=== PATIENT | male | born 1940 | race Caucasian/White ===

== ENCOUNTER 2017-05-09 07:22 | Day surgery (SDC) | payer MEDICARE, BC ==
[2017-05-09] MEDS ORDERED: Lactated Ringers 1,000 ML IV SCH (08:00)
[2017-05-09] MEDS ORDERED: Propofol 200 MG/20 ML SDV ONE (09:03)
[2017-05-09] MEDS ORDERED: fentaNYL 100 MCG/2 ML SDV ONE (09:03)
[2017-05-09 11:09] VITALS: BP 121/59
--- NOTE | 2017-05-09 14:44 | OR ---
DATE OF PROCEDURE: 05/09/2017 PREOPERATIVE DIAGNOSES: Upper abdominal pain and history of colon polyps. POSTOPERATIVE DIAGNOSES: Gastroesophageal reflux disease, history of colon polyps, and unremarkable colonoscopy. PROCEDURE: Esophagogastroduodenoscopy with biopsy of gastroesophageal junction , colonoscopy to the cecum. SURGEON: Lc Mtz MD. ANESTHESIA: IV anesthesia with monitored anesthesia care. INDICATION: This 77-year-old white male is referred for upper and lower endoscopy. The indication for an upper endoscopy is upper abdominal pain. He has been taking a proton pump inhibitor. The indication for a colonoscopy is a history of colon polyps. I counseled him for upper and lower endoscopy with possible biopsy and/or polypectomy including risks and alternatives, and he gave his informed consent to proceed. DESCRIPTION OF PROCEDURE: The patient was placed in the left lateral decubitus position. IV anesthesia was administered by the Anesthesia Service. Time-out was held. The flexible video Olympus upper endoscope was passed through his mouth, down his esophagus, and into his stomach. The scope was easily passed through the pylorus into the duodenum reaching its third portion. The scope was then slowly withdrawn, examining the mucosa throughout. The duodenal mucosa appeared unremarkable. The scope was brought back up through the pylorus into the antrum. The antrum appeared unremarkable. The scope was retroflexed. The proximal stomach appeared unremarkable. The scope was straightened and brought up to the GE junction. This was abnormal in that the Z-line was not straight and that there were islands of gastric mucosa proximal to the Z-line. We obtained multiple, totalling of at least six, biopsies of the gastroesophageal junction. The scope was then brought up through the remainder of the esophagus, which otherwise appeared unremarkable, and it was removed. Next a rectal exam was performed, which was unremarkable. The flexible video Olympus colonoscope was introduced through his anus, up his rectum, and out his colon all way to the cecum. Once the cecum was reached, the scope was slowly withdrawn, examining the mucosa throughout. No mucosal abnormalities were noted. The scope was retroflexed in the rectum with the distal rectum appearing unremarkable. The scope was straightened and removed. He tolerated the procedure well. Lc Mtz MD /[id number] [facility]
== END 2017-05-09 11:30 | disposition home or self-care (01) ==
LOC: JP.SDS 07:22
PROVIDERS: ATTEND Surgery
DX: Z12.11 Encounter for screening for malignant neoplasm of colon (principal); K21.0 Gastro-esophageal reflux disease with esophagitis; I25.10 Atherosclerotic heart disease of native coronary artery without angina pectoris; Z95.5 Presence of coronary angioplasty implant and graft; I10 Essential (primary) hypertension; Z86.010 Personal history of colon polyps; Z88.8 Allergy status to other drugs, medicaments and biological substances
CPT/HCPCS: 43239; 88305; 93005; G0121; J2704; J3010; J7120; 93010

== ENCOUNTER 2017-06-15 10:05 | Emergency (ER) | payer MEDICARE, BC ==
[2017-06-15] MEDS ORDERED: Aspirin 81 MG Tab.Chew PO ONE (10:19)
[2017-06-15] MEDS ORDERED: Nitroglycerin 0.4 MG Tab.SL SL PRN (10:20)
--- NOTE | 2017-06-15 11:09 | CR ---
Chest 1V Frontal HISTORY: Chest pain COMPARISON: 04/10/2015. FINDINGS: Prior median sternotomy. Stable mild cardiomegaly. No acute congestive change. No focal inf iltrates or effusions. Previously seen possible infiltrate at the left lung base is no longer apparen t. Impression: Stable cardiac enlargement no acute infiltrate or congestive change.
--- NOTE | 2017-06-15 11:22 | EDM.PDOC ---
ED HPI GENERAL MEDICAL PROBLEM - General Chief Complaint: Chest Pain Stated Complaint: CHEST PAIN Time Seen by Provider: 06/15/17 10:15 Source of Information: Reports: Patient History Limitations: Reports: No Limitations - History of Present Illness INITIAL COMMENTS - FREE TEXT/NARRATIVE: pt is having chest pain when he walks or exercises . The pain goes away when he rests. He is in atrial fib with some sig pauses. He is rate controlled. 1 week ago he was started on coumadin and his INR is high at greater than 4. Onset: Gradual, Other (last 2-3 days. ) Duration: Hour(s):, Getting Worse Location: Reports: Chest Associated Symptoms: Reports: Other (pt has known atrial fib. ) chest Pain Score (Numeric/FACES): 0 - Related Data Allergies Allergy/AdvReac Type Severity Reaction Status Date / Time procainamide Allergy Other Verified 06/15/17 10:12 ranolazine [From Ranexa] Allergy Other Verified 06/15/17 10:12 rosuvastatin [From Crestor] AdvReac Joint Pain Verified 06/15/17 10:12 simvastatin AdvReac Muscle Verified 06/15/17 10:12 Aches Home Meds: Home Meds Atenolol [Tenormin] 25 mg PO QPM 04/10/15 [History] Docusate Sodium [Colace] 50 mg PO QID 04/10/15 [History] Isosorbide Mononitrate [Imdur] 120 mg PO QAM 04/10/15 [History] Losartan [Cozaar] 25 mg PO QAM 04/10/15 [History] Nitroglycerin [Nitrostat] 0.4 mg SL ASDIRECTED PRN 04/10/15 [History] atorvaSTATin [Lipitor] 80 mg PO DAILY 04/10/15 [History] Aspirin [Adult Low Dose Aspirin EC] 81 mg PO DAILY 05/08/17 [History] Citalopram Hydrobromide [Celexa] 20 mg PO DAILY 05/08/17 [History] Multivitamin with Minerals [Multiple Vitamin] 1 tab PO DAILY 05/08/17 [History] QUEtiapine [SEROquel] 50 mg PO BEDTIME 05/08/17 [History] Triamcinolone Acetonide [Kenalog 0.1% Crm] 1 applic TOP BID 05/08/17 [History] amLODIPine [Norvasc] 10 mg PO DAILY 05/08/17 [History] Warfarin [Coumadin] 5 mg PO DAILY 06/15/17 [History] Past Medical History HEENT History: Reports: Impaired Vision Cardiovascular History: Reports: Afib, Bypass, High Cholesterol, Hypertension, Stents Respiratory History: Reports: Asthma Gastrointestinal History: Reports: Colon Polyp, GERD, Other (See Below) Other Gastrointestinal History: pre ulcers Genitourinary History: Reports: Prostate Disorder Musculoskeletal History: Reports: Arthritis Hematologic History: Reports: Blood Transfusion(s), Other (See Below) Other Hematologic History: for open heart surgery Oncologic (Cancer) History: Reports: Other (See Below) Other Oncologic History: possible skin cancer on nose Dermatologic History: Reports: Psoriasis - Infectious Disease History Infectious Disease History: Reports: Influenza, Measles, Mumps - Past Surgical History HEENT Surgical History: Reports: None Cardiovascular Surgical History: Reports: Carotid Endarterectomy, Coronary Artery Bypass, Coronary Artery Stent Other Cardiovascular Surgeries/Procedures: carotid surgery left side Respiratory Surgical History: Reports: None GI Surgical History: Reports: Colonoscopy, Hernia, Inguinal Other GI Surgeries/Procedures: left ing. hernia Male Surgical History: Reports: TURP-Transurethral Resection of Prostate Other Male Surgeries/Procedures: Musculoskeletal Surgical History: Reports: Other (See Below) Other Musculoskeletal Surgeries/Procedures:: dislocated left shoulder, fx left wrist as child Oncologic Surgical History: Reports: None Social & Family History - Tobacco Use Smoking Status *Q: Former Smoker Years of Tobacco use: 20 Packs/Tins Daily: 0.5 Used Tobacco, but Quit: Yes Month Tobacco Last Used: Second Hand Smoke Exposure: No - Caffeine Use Caffeine Use: Reports: Coffee - Alcohol Use Days Per Week of Alcohol Use: 1 Number of Drinks Per Day: 1 Total Drinks Per Week: 1 - Recreational Drug Use Recreational Drug Use: No ED ROS GENERAL - Review of Systems Review Of Systems: See Below Constitutional: Reports: No Symptoms HEENT: Reports: No Symptoms Respiratory: Reports: No Symptoms Cardiovascular: Reports: Chest Pain, Other ( atrial fib. ) Endocrine: Reports: No Symptoms GI/Abdominal: Reports: No Symptoms : Reports: No Symptoms Musculoskeletal: Reports: No Symptoms Skin: Reports: No Symptoms ED EXAM, GENERAL - Physical Exam Exam: See Below Free Text/Narrative:: Pt arrived with a history of chest pain with activity. When he was at rest he states the pain goes away. He has known atrial fib and there has been consideration of cardioversion. Exam Limited By: No Limitations General Appearance: Alert, No Apparent Distress, Anxious, Other (pupils are equal and ractive. ) Ears: Normal TMs Nose: Normal Inspection Throat/Mouth: Normal Inspection Head: Atraumatic Neck: Normal Inspection Respiratory/Chest: No Respiratory Distress Cardiovascular: Irregularly Irregular, Other ( atrial fib) GI/Abdominal: Soft, Non-Tender (Male) Exam: Deferred Rectal (Males) Exam: Deferred Extremities: Normal Inspection Neurological: Alert, Oriented, Normal Cognition Psychiatric: Normal Affect Course - Vital Signs Last Recorded V/S: Last Vital Signs Temp 35.5 C 06/15/17 10:14 Pulse 58 L 06/15/17 12:05 Resp 12 06/15/17 12:05 BP 114/70 06/15/17 12:05 Pulse Ox 94 L 06/15/17 12:05 - Orders/Labs/Meds Labs: Laboratory Tests 06/15/17 06/15/17 06/15/17 Range/Units 10:31 10:31 10:31 WBC 5.9 (4.5-11.0) K/uL RBC 4.08 L (4.30-5.90) M/uL Hgb 12.9 (12.0-15.0) g/dL Hct 38.9 L (40.0-54.0) % MCV 95 (80-98) fL MCH 32 H (27-31) pg MCHC 33 (32-36) % Plt Count 139 L (150-400) K/uL Neut % (Auto) 54 (36-66) % Lymph % (Auto) 24 (24-44) % [place] % (Auto) 13 H (2-6) % Eos % (Auto) 7 H (2-4) % Baso % (Auto) 1 (0-1) % PT 47.0 H (9.5-12.0) sec INR 4.14 H* (0.80-1.20) APTT 38.0 H (27.0-36.0) sec Sodium (140-148) mmol/L Potassium (3.6-5.2) mmol/L Chloride (100-108) mmol/L Carbon Dioxide (21-32) mmol/L Anion Gap (5.0-14.0) mmol/L BUN (7-18) mg/dL Creatinine (0.8-1.3) mg/dL Est Cr Clr Drug Dosing mL/min Estimated GFR (MDRD) (>60) Glucose (74-106) mg/dL Calcium (8.5-10.1) mg/dL Total Bilirubin (0.2-1.0) mg/dL AST (15-37) U/L ALT (12-78) U/L Alkaline Phosphatase (46-116) U/L Creatine Kinase (39-308) U/L Troponin I < 0.017 (0.000-0.056) ng/mL Total Protein (6.4-8.2) g/dL Albumin (3.4-5.0) g/dL Globulin (2.3-3.5) g/dL Albumin/Globulin Ratio (1.2-2.2) Urine Color Urine Appearance Urine pH (4.5-8.0) Ur Specific [place] (1.008-1.030) Urine Protein (NEGATIVE) mg/dL Urine Glucose (UA) (NEGATIVE) mg/dL Urine Ketones (NEGATIVE) mg/dL Urine Occult Blood (NEGATIVE) Urine Nitrite (NEGAITVE) Urine Bilirubin (NEGATIVE) Urine Urobilinogen (NORMAL) mg/dL Ur Leukocyte Esterase (NEGATIVE) Urine RBC (0-5) Urine WBC (0-5) Ur Epithelial Cells Amorphous Sediment Urine Bacteria Urine Mucus 06/15/17 06/15/17 Range/Units 10:31 11:28 WBC (4.5-11.0) K/uL RBC (4.30-5.90) M/uL Hgb (12.0-15.0) g/dL Hct (40.0-54.0) % MCV (80-98) fL MCH (27-31) pg MCHC (32-36) % Plt Count (150-400) K/uL Neut % (Auto) (36-66) % Lymph % (Auto) (24-44) % [place] % (Auto) (2-6) % Eos % (Auto) (2-4) % Baso % (Auto) (0-1) % PT (9.5-12.0) sec INR (0.80-1.20) APTT (27.0-36.0) sec Sodium 142 (140-148) mmol/L Potassium 4.0 (3.6-5.2) mmol/L Chloride 105 (100-108) mmol/L Carbon Dioxide 30 (21-32) mmol/L Anion Gap 6.9 (5.0-14.0) mmol/L BUN 20 H (7-18) mg/dL Creatinine 1.1 (0.8-1.3) mg/dL Est Cr Clr Drug Dosing 59.91 mL/min Estimated GFR (MDRD) > 60 (>60) Glucose 96 (74-106) mg/dL Calcium 8.5 (8.5-10.1) mg/dL Total Bilirubin 0.8 D (0.2-1.0) mg/dL AST 31 (15-37) U/L ALT 38 (12-78) U/L Alkaline Phosphatase 68 (46-116) U/L Creatine Kinase 165 (39-308) U/L Troponin I (0.000-0.056) ng/mL Total Protein 5.9 L (6.4-8.2) g/dL Albumin 3.2 L (3.4-5.0) g/dL Globulin 2.7 (2.3-3.5) g/dL Albumin/Globulin Ratio 1.2 (1.2-2.2) Urine Color Yellow Urine Appearance Clear Urine pH 7.0 (4.5-8.0) Ur Specific [place] 1.010 (1.008-1.030) Urine Protein Negative (NEGATIVE) mg/dL Urine Glucose (UA) Normal (NEGATIVE) mg/dL Urine Ketones Negative (NEGATIVE) mg/dL Urine Occult Blood Negative (NEGATIVE) Urine Nitrite Negative (NEGAITVE) Urine Bilirubin Negative (NEGATIVE) Urine Urobilinogen Normal (NORMAL) mg/dL Ur Leukocyte Esterase Negative (NEGATIVE) Urine RBC 0-5 (0-5) Urine WBC 0-5 (0-5) Ur Epithelial Cells Rare Amorphous Sediment Not seen Urine Bacteria Not seen Urine Mucus Not seen Meds: Medications Discontinued Medications Generic Name Dose Route Start Last Admin Trade Name Freq PRN Reason Stop Dose Admin Aspirin 243 mg 06/15/17 10:19 06/15/17 10:25 Aspirin PO 06/15/17 10:20 243 mg ONETIME ONE Administration Sodium Chloride 1,000 mls @ 150 mls/hr 06/15/17 11:30 Normal Saline IV ASDIRECTED MEG Nitroglycerin 0.4 mg 06/15/17 10:20 06/15/17 11:29 Nitrostat SL 0.4 mg Q5M PRN Administration Chest Pain - Re-Assessments/Exams Free Text/Narrative Re-Assessment/Exam: 06/15/17 11:24 ekg shows atrial fib with sig pauses, His ekg did not show sig s-t changes. He had a normal trop. His inr is high. He was started on coumadin 1 week ago. Free Text/Narrative Re-Assessment/Exam: 06/18/17 07:26 pt had normal cardiac enzymes. He remained in atrial fib. With the chest pain the sales operations director thought he should come to [place]. Departure - Departure Time of Disposition: 12:15 Disposition: DC/Tfer to Acute Hospital 02 Reason for Transfer *Q: Primary PCI Indicated Condition: Fair Clinical Impression: Exercise-induced angina, Atrial fibrillation Referrals: PCP,None [Ordering Only Provider] - Forms: ED Department Discharge Care Plan Goals: transfer to [facility].
[2017-06-15] MEDS ORDERED: Sodium Chloride 0.9% 1,000 ML IV SCH (11:30)
[2017-06-15 11:38] VITALS: BP 114/70
== END 2017-06-15 12:38 ==
LOC: JP.ED 10:05
DX: I20.8 Other forms of angina pectoris (principal); I48.91 Unspecified atrial fibrillation; I10 Essential (primary) hypertension; E78.00 Pure hypercholesterolemia, unspecified; J45.909 Unspecified asthma, uncomplicated; Z79.82 Long term (current) use of aspirin; Z87.891 Personal history of nicotine dependence; Z79.01 Long term (current) use of anticoagulants; Z79.899 Other long term (current) drug therapy; Z88.1 Allergy status to other antibiotic agents; Z88.8 Allergy status to other drugs, medicaments and biological substances
CPT/HCPCS: 36415; 71045; 80053; 81001; 82550; 84484; 85025; 85610; 85730; 93005; 99285; A9270; 93010; 99284

== ENCOUNTER 2017-07-22 03:40 | Emergency (ER) | payer MEDICARE, BC ==
[2017-07-22 04:02] VITALS: BP 164/78
[2017-07-22] MEDS ORDERED: Ondansetron 4 MG Tab.DIS PO ONE (04:55)
[2017-07-22] MEDS ORDERED: Sodium Chloride 0.9% 10 ML Syringe FLUSH PRN (05:29)
[2017-07-22] MEDS ORDERED: Iopamidol 612 MG/ML 150 ML Bottle IV PRN (05:48)
--- NOTE | 2017-07-22 05:51 | EDM.PDOC ---
ED HPI GENERAL MEDICAL PROBLEM - General Chief Complaint: Gastrointestinal Problem Stated Complaint: STOMACH ACHE Time Seen by Provider: 07/22/17 04:54 Source of Information: Reports: Patient History Limitations: Reports: No Limitations - History of Present Illness INITIAL COMMENTS - FREE TEXT/NARRATIVE: This patient said that last night he ate some spaghetti and not long afterwards started having some pain. He says it's sometimes like cramps sometimes like a bloating feeling and he was very nauseated. He said he never vomited just tried to vomit because of the severe nausea. Recently he was put on the metoprolol because of atrial fibrillation and said that he's Been sick since that time. Middle Abdomen Pain Score (Numeric/FACES): 7 - Related Data Allergies Allergy/AdvReac Type Severity Reaction Status Date / Time procainamide Allergy Other Verified 06/15/17 10:12 ranolazine [From Ranexa] Allergy Other Verified 06/15/17 10:12 rosuvastatin [From Crestor] AdvReac Joint Pain Verified 06/15/17 10:12 simvastatin AdvReac Muscle Verified 06/15/17 10:12 Aches Home Meds: Home Meds Docusate Sodium [Colace] 50 mg PO QID 04/10/15 [History] Isosorbide Mononitrate [Imdur] 120 mg PO QAM 04/10/15 [History] Nitroglycerin [Nitrostat] 0.4 mg SL ASDIRECTED PRN 04/10/15 [History] atorvaSTATin [Lipitor] 80 mg PO DAILY 04/10/15 [History] Aspirin [Adult Low Dose Aspirin EC] 81 mg PO DAILY 05/08/17 [History] Citalopram Hydrobromide [Celexa] 20 mg PO DAILY 05/08/17 [History] Multivitamin with Minerals [Multiple Vitamin] 1 tab PO DAILY 05/08/17 [History] QUEtiapine [SEROquel] 50 mg PO BEDTIME 05/08/17 [History] Triamcinolone Acetonide [Kenalog 0.1% Crm] 1 applic TOP BID 05/08/17 [History] amLODIPine [Norvasc] 10 mg PO DAILY 05/08/17 [History] Warfarin [Coumadin] 5 mg PO DAILY 06/15/17 [History] Metoprolol Tartrate 50 mg PO DAILY 07/22/17 [History] Past Medical History HEENT History: Reports: Impaired Vision Cardiovascular History: Reports: Afib, Bypass, High Cholesterol, Hypertension, Stents Other Cardiovascular History: recent cardioversion from atrial fib. Pt. started on metoprolol and DCd cozaar and tenormin. Pt. took metoprolol in the evening instead of morning yesterday and thinks this may be the cause of his nausea and abd. pain. Respiratory History: Reports: Asthma Gastrointestinal History: Reports: Colon Polyp, GERD, Other (See Below) Other Gastrointestinal History: pre ulcers Genitourinary History: Reports: Prostate Disorder Musculoskeletal History: Reports: Arthritis Hematologic History: Reports: Blood Transfusion(s), Other (See Below) Other Hematologic History: for open heart surgery Oncologic (Cancer) History: Reports: Other (See Below) Other Oncologic History: possible skin cancer on nose Dermatologic History: Reports: Psoriasis - Infectious Disease History Infectious Disease History: Reports: Influenza, Measles, Mumps - Past Surgical History HEENT Surgical History: Reports: None Cardiovascular Surgical History: Reports: Carotid Endarterectomy, Coronary Artery Bypass, Coronary Artery Stent Other Cardiovascular Surgeries/Procedures: carotid surgery left side Respiratory Surgical History: Reports: None GI Surgical History: Reports: Colonoscopy, Hernia, Inguinal Other GI Surgeries/Procedures: left ing. hernia Male Surgical History: Reports: TURP-Transurethral Resection of Prostate Other Male Surgeries/Procedures: Musculoskeletal Surgical History: Reports: Other (See Below) Other Musculoskeletal Surgeries/Procedures:: dislocated left shoulder, fx left wrist as child Oncologic Surgical History: Reports: None Social & Family History - Tobacco Use Smoking Status *Q: Never Smoker Years of Tobacco use: 20 Packs/Tins Daily: 0.5 Used Tobacco, but Quit: Yes Month Tobacco Last Used: Second Hand Smoke Exposure: No - Caffeine Use Caffeine Use: Reports: None - Alcohol Use Days Per Week of Alcohol Use: 1 Number of Drinks Per Day: 1 Total Drinks Per Week: 1 - Recreational Drug Use Recreational Drug Use: No ED ROS GENERAL - Review of Systems Review Of Systems: ROS reveals no pertinent complaints other than HPI. ED EXAM, GI/ABD - Physical Exam Exam: See Below Exam Limited By: No Limitations General Appearance: Alert, WD/WN, No Apparent Distress Eyes: Bilateral: Normal Appearance Throat/Mouth: Normal Oropharynx Head: Atraumatic Neck: Normal Inspection Respiratory/Chest: Lungs Clear Cardiovascular: Regular Rate, Rhythm. No: Irregularly Irregular GI/Abdominal Exam: Soft, Non-Tender, Other (Mildly distended. Bowel sounds hypoactive. Some question of a pulsatile mass in the midline in that. Umbilical area) Extremities: Normal Inspection Neurological: Alert, Oriented, Sensory/Motor Deficit Skin Exam: Warm, Dry Course - Vital Signs Last Recorded V/S: Last Vital Signs Temp 35.9 C 07/22/17 04:01 Pulse 52 L 07/22/17 04:01 Resp 20 07/22/17 04:01 BP 164/78 H 07/22/17 04:01 Pulse Ox 96 07/22/17 04:01 - Orders/Labs/Meds Orders: Active Orders 24 hr Category Date Time Status EKG Documentation Completion [RC] ASDIRECTED Care 07/22/17 04:55 Active Abdomen Pelvis w Cont [CT] Stat Exams 07/22/17 05:29 Taken Iopamidol [Isovue-300 (61%)] Med 07/22/17 05:48 Active 124 ml IV . DIRECTED PRN Sodium Chloride 0.9% [Normal Saline] 81 ml Med 07/22/17 06:00 Active IV ASDIRECTED Sodium Chloride 0.9% [Saline Flush] Med 07/22/17 05:29 Active 10 ml FLUSH ASDIRECTED PRN Saline Lock Insert [OM.PC] Urgent Oth 07/22/17 05:29 Ordered EKG 12 Lead [EK] Urgent Ther 07/22/17 04:55 Ordered Medication Orders Sodium Chloride (Normal Saline) 81 mls @ 3.5 mls/sec IV ASDIRECTED MEG Last Admin: 07/22/17 06:07 Dose: 3.5 mls/sec Iopamidol (Isovue-300 (61%)) 124 ml IV . DIRECTED PRN PRN Reason: RADIOLOGY EXAM Stop: 07/23/17 05:49 Last Admin: 07/22/17 06:06 Dose: 124 ml Sodium Chloride (Saline Flush) 10 ml FLUSH ASDIRECTED PRN PRN Reason: Keep Vein Open Last Admin: 07/22/17 05:55 Dose: 10 ml Labs: Laboratory Tests 07/22/17 07/22/17 07/22/17 Range/Units 05:39 05:39 06:25 WBC 6.5 (4.5-11.0) K/uL RBC 4.41 (4.30-5.90) M/uL Hgb 14.0 (12.0-15.0) g/dL Hct 41.4 (40.0-54.0) % MCV 94 (80-98) fL MCH 32 H (27-31) pg MCHC 34 (32-36) % Plt Count 117 L (150-400) K/uL Neut % (Auto) 67 H (36-66) % Lymph % (Auto) 22 L (24-44) % [place] % (Auto) 9 H (2-6) % Eos % (Auto) 2 (2-4) % Baso % (Auto) 1 (0-1) % Sodium 135 L (140-148) mmol/L Potassium 3.6 (3.6-5.2) mmol/L Chloride 97 L (100-108) mmol/L Carbon Dioxide 26 (21-32) mmol/L Anion Gap 15.6 H (5.0-14.0) mmol/L BUN 18 (7-18) mg/dL Creatinine 1.0 (0.8-1.3) mg/dL Est Cr Clr Drug Dosing 65.90 mL/min Estimated GFR (MDRD) > 60 (>60) Glucose 124 H (74-106) mg/dL Calcium 8.6 (8.5-10.1) mg/dL Total Bilirubin 0.7 (0.2-1.0) mg/dL AST 27 (15-37) U/L ALT 27 (12-78) U/L Alkaline Phosphatase 54 (46-116) U/L Total Protein 6.7 (6.4-8.2) g/dL Albumin 3.6 (3.4-5.0) g/dL Globulin 3.1 (2.3-3.5) g/dL Albumin/Globulin Ratio 1.2 (1.2-2.2) Urine Color Yellow Urine Appearance Cloudy Urine pH 8.0 (4.5-8.0) Ur Specific [place] 1.015 (1.008-1.030) Urine Protein Negative (NEGATIVE) mg/dL Urine Glucose (UA) Normal (NEGATIVE) mg/dL Urine Ketones Negative (NEGATIVE) mg/dL Urine Occult Blood Negative (NEGATIVE) Urine Nitrite Negative (NEGAITVE) Urine Bilirubin Negative (NEGATIVE) Urine Urobilinogen Normal (NORMAL) mg/dL Ur Leukocyte Esterase Negative (NEGATIVE) Urine RBC Not seen (0-5) Urine WBC Not seen (0-5) Ur Epithelial Cells Not seen Amorphous Sediment Moderate Urine Bacteria Not seen Urine Mucus Not seen Meds: Medications Generic Name Dose Route Start Last Admin Trade Name Freq PRN Reason Stop Dose Admin Sodium Chloride 81 mls @ 3.5 mls/sec 07/22/17 06:00 07/22/17 06:07 Normal Saline IV 3.5 mls/sec ASDIRECTED MEG Administration Iopamidol 124 ml 07/22/17 05:48 07/22/17 06:06 Isovue-300 (61%) IV 07/23/17 05:49 124 ml . 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 - Re-Assessments/Exams Free Text/Narrative Re-Assessment/Exam: 07/22/17 05:43 Initially this patient was given Zofran 8 mg sublingual he said that really helped with the nausea but did nothing for the abdominal discomfort. He was examined again at 525. This is when the peer he umbilical area seemed to have a quality of a possible pulsatile mass. He's a little distended but doesn't seem like gas definitely not tympanitic. 07/22/17 07:21 At this time patient says she's starting to have more nausea however to give him some Phenergan which should last quite a bit longer course it makes him drowsy and he is aware that. Had a discussion about food poisoning Departure - Departure Time of Disposition: 07:22 Disposition: Home, Self-Care 01 Condition: Fair Clinical Impression: Abdominal pain, Food poisoning - Discharge Information Referrals: Stefan Mcelroy MD [Primary Care Provider] - Forms: ED Department Discharge Additional Instructions: Most likely you're nausea and abdominal pain are caused by food poisoning. The likely culprit would be staph food poisoning. Staff can form a very tiny area of food and it produces a toxin which will set off symptoms of food poisoning within just an hour or 2 of indigestion. This can cause some really severe nausea vomiting and diarrhea but it goes away very fast. This could also be caused by a viral gastroenteritis or stomach flu. I recommend clear liquid diet for the next 24 hours then advance as tolerated. For nausea you can take Phenergan or promethazine 25 mg tablets one or 2 every 6 -8 hours. This medication can cause really bad drowsiness and impair driving so don't drive at all within at least 12 hours of taking Phenergan preferably longer. If you have more problems return to the ER or follow-up with your Dr. - My Orders Last 24 Hours: My Active Orders 07/22/17 04:55 EKG Documentation Completion [RC] ASDIRECTED EKG 12 Lead [EK] Urgent 07/22/17 05:29 Abdomen Pelvis w Cont [CT] Stat Sodium Chloride 0.9% [Saline Flush] 10 ml FLUSH ASDIRECTED PRN Saline Lock Insert [OM.PC] Urgent 07/22/17 05:48 Iopamidol [Isovue-300 (61%)] 124 ml IV . DIRECTED PRN 07/22/17 06:00 Sodium Chloride 0.9% [Normal Saline] 81 ml IV ASDIRECTED - Assessment/Plan Last 24 Hours: My Active Orders 07/22/17 04:55 EKG Documentation Completion [RC] ASDIRECTED EKG 12 Lead [EK] Urgent 07/22/17 05:29 Abdomen Pelvis w Cont [CT] Stat Sodium Chloride 0.9% [Saline Flush] 10 ml FLUSH ASDIRECTED PRN Saline Lock Insert [OM.PC] Urgent 07/22/17 05:48 Iopamidol [Isovue-300 (61%)] 124 ml IV . DIRECTED PRN 07/22/17 06:00 Sodium Chloride 0.9% [Normal Saline] 81 ml IV ASDIRECTED
== END 2017-07-22 07:44 | disposition home or self-care (01) ==
LOC: JP.ED 03:40
DX: T62.91XA Toxic effect of unspecified noxious substance eaten as food, accidental (unintentional), initial encounter (principal); R10.9 Unspecified abdominal pain; I10 Essential (primary) hypertension; I48.91 Unspecified atrial fibrillation; E78.00 Pure hypercholesterolemia, unspecified; K21.9 Gastro-esophageal reflux disease without esophagitis; Z87.891 Personal history of nicotine dependence; Z79.01 Long term (current) use of anticoagulants; Z79.82 Long term (current) use of aspirin; Z79.899 Other long term (current) drug therapy; Z88.8 Allergy status to other drugs, medicaments and biological substances
CPT/HCPCS: 36415; 74177; 80053; 81001; 85025; 93005; 99283; 99285; A9270; J7030; J7050; 93010

== ENCOUNTER 2018-09-11 09:13 | Emergency (ER) | payer MEDICARE, BC ==
[2018-09-11] MEDS ORDERED: Sodium Chloride 0.9% 10 ML Syringe FLUSH PRN (09:52)
--- NOTE | 2018-09-11 09:59 | EDM.PDOC ---
ED HPI GENERAL MEDICAL PROBLEM - General Chief Complaint: Cardiovascular Problem Stated Complaint: POSSIBLE AFIB - Related Data Allergies Allergy/AdvReac Type Severity Reaction Status Date / Time procainamide Allergy Other Verified 12/24/17 21:12 ranolazine [From Ranexa] Allergy Other Verified 12/24/17 21:12 rosuvastatin [From Crestor] AdvReac Joint Pain Verified 12/24/17 21:12 simvastatin AdvReac Muscle Verified 12/24/17 21:12 Aches Home Meds: Home Meds Docusate Sodium [Colace] 50 mg PO QID 04/10/15 [History] Isosorbide Mononitrate [Imdur] 120 mg PO QAM 04/10/15 [History] Nitroglycerin [Nitrostat] 0.4 mg SL ASDIRECTED PRN 04/10/15 [History] atorvaSTATin [Lipitor] 80 mg PO DAILY 04/10/15 [History] Aspirin [Adult Low Dose Aspirin EC] 81 mg PO DAILY 05/08/17 [History] Citalopram Hydrobromide [Celexa] 20 mg PO DAILY 05/08/17 [History] Multivitamin with Minerals [Multiple Vitamin] 1 tab PO DAILY 05/08/17 [History] QUEtiapine [SEROquel] 50 mg PO BEDTIME 05/08/17 [History] Triamcinolone Acetonide [Kenalog 0.1% Crm] 1 applic TOP BID 05/08/17 [History] amLODIPine [Norvasc] 10 mg PO DAILY 05/08/17 [History] Warfarin [Coumadin] 3.75 mg PO DAILY 06/15/17 [History] Metoprolol Tartrate 50 mg PO DAILY 07/22/17 [History] Past Medical History HEENT History: Reports: Impaired Vision Cardiovascular History: Reports: Afib, Bypass, High Cholesterol, Hypertension, [place], Stents Other Cardiovascular History: recent cardioversion from atrial fib. Pt. started on metoprolol and DCd cozaar and tenormin. Pt. took metoprolol in the evening instead of morning yesterday and thinks this may be the cause of his nausea and abd. pain. Respiratory History: Reports: Asthma Gastrointestinal History: Reports: Colon Polyp, GERD, Other (See Below) Other Gastrointestinal History: pre ulcers Genitourinary History: Reports: Prostate Disorder Musculoskeletal History: Reports: Arthritis, Fracture Neurological History: Reports: Neuropathy, Peripheral Hematologic History: Reports: Blood Transfusion(s), Other (See Below) Other Hematologic History: for open heart surgery Oncologic (Cancer) History: Reports: Other (See Below) Other Oncologic History: possible skin cancer on nose Dermatologic History: Reports: Psoriasis - Infectious Disease History Infectious Disease History: Reports: Influenza, Measles, Mumps - Past Surgical History Cardiovascular Surgical History: Reports: Carotid Endarterectomy, Coronary Artery Bypass, Coronary Artery Stent Other Cardiovascular Surgeries/Procedures: carotid surgery left side GI Surgical History: Reports: Colonoscopy, Hernia, Inguinal Other GI Surgeries/Procedures: left ing. hernia Male Surgical History: Reports: TURP-Transurethral Resection of Prostate Other Male Surgeries/Procedures: Musculoskeletal Surgical History: Reports: Other (See Below) Other Musculoskeletal Surgeries/Procedures:: dislocated left shoulder, fx left wrist as child Social & Family History - Tobacco Use Smoking Status *Q: Never Smoker - Caffeine Use Caffeine Use: Reports: Coffee - Recreational Drug Use Recreational Drug Use: No Course - Vital Signs Last Recorded V/S: Last Vital Signs Temp 96.4 F 09/11/18 09:26 Pulse 66 09/11/18 09:26 Resp 19 09/11/18 09:26 BP 139/65 09/11/18 09:26 Pulse Ox 98 09/11/18 09:26 Departure - Departure Referrals: Stefan Mcelroy MD [Primary Care Provider] -
--- NOTE | 2018-09-11 10:09 | EDM.PDOC ---
ED HPI GENERAL MEDICAL PROBLEM - General Chief Complaint: Cardiovascular Problem Stated Complaint: POSSIBLE AFIB Time Seen by Provider: 09/11/18 09:45 Source of Information: Reports: Patient History Limitations: Reports: No Limitations, Other - History of Present Illness INITIAL COMMENTS - FREE TEXT/NARRATIVE: Became light headed last night and felt weak and nauseated. This morning noticed irregular pulse. Has history of Atrial fibrillation. Had ablation done by [facility] unsuccessfully in past. Had cardioversion about 1 year ago. Denies pain. Has history of CVD and status post CABG and stents. Is on coumadin. - Related Data Allergies Allergy/AdvReac Type Severity Reaction Status Date / Time procainamide Allergy Other Verified 12/24/17 21:12 ranolazine [From Ranexa] Allergy Other Verified 12/24/17 21:12 rosuvastatin [From Crestor] AdvReac Joint Pain Verified 12/24/17 21:12 simvastatin AdvReac Muscle Verified 12/24/17 21:12 Aches Home Meds: Home Meds Docusate Sodium [Colace] 50 mg PO QID 04/10/15 [History] Isosorbide Mononitrate [Imdur] 120 mg PO QAM 04/10/15 [History] Nitroglycerin [Nitrostat] 0.4 mg SL ASDIRECTED PRN 04/10/15 [History] atorvaSTATin [Lipitor] 80 mg PO DAILY 04/10/15 [History] Aspirin [Adult Low Dose Aspirin EC] 81 mg PO DAILY 05/08/17 [History] Citalopram Hydrobromide [Celexa] 20 mg PO DAILY 05/08/17 [History] Multivitamin with Minerals [Multiple Vitamin] 1 tab PO DAILY 05/08/17 [History] QUEtiapine [SEROquel] 50 mg PO BEDTIME 05/08/17 [History] Triamcinolone Acetonide [Kenalog 0.1% Crm] 1 applic TOP BID 05/08/17 [History] amLODIPine [Norvasc] 10 mg PO DAILY 05/08/17 [History] Warfarin [Coumadin] 3.75 mg PO DAILY 06/15/17 [History] Metoprolol Tartrate 50 mg PO DAILY 07/22/17 [History] Past Medical History HEENT History: Reports: Impaired Vision Cardiovascular History: Reports: Afib, Bypass, High Cholesterol, Hypertension, [place], Stents Other Cardiovascular History: recent cardioversion from atrial fib. Pt. started on metoprolol and DCd cozaar and tenormin. Pt. took metoprolol in the evening instead of morning yesterday and thinks this may be the cause of his nausea and abd. pain. Respiratory History: Reports: Asthma Gastrointestinal History: Reports: Colon Polyp, GERD, Other (See Below) Other Gastrointestinal History: pre ulcers Genitourinary History: Reports: Prostate Disorder Musculoskeletal History: Reports: Arthritis, Fracture Neurological History: Reports: Neuropathy, Peripheral Hematologic History: Reports: Blood Transfusion(s), Other (See Below) Other Hematologic History: for open heart surgery Oncologic (Cancer) History: Reports: Other (See Below) Other Oncologic History: possible skin cancer on nose Dermatologic History: Reports: Psoriasis - Infectious Disease History Infectious Disease History: Reports: Influenza, Measles, Mumps - Past Surgical History Cardiovascular Surgical History: Reports: Carotid Endarterectomy, Coronary Artery Bypass, Coronary Artery Stent Other Cardiovascular Surgeries/Procedures: carotid surgery left side GI Surgical History: Reports: Colonoscopy, Hernia, Inguinal Other GI Surgeries/Procedures: left ing. hernia Male Surgical History: Reports: TURP-Transurethral Resection of Prostate Other Male Surgeries/Procedures: Musculoskeletal Surgical History: Reports: Other (See Below) Other Musculoskeletal Surgeries/Procedures:: dislocated left shoulder, fx left wrist as child Social & Family History - Tobacco Use Smoking Status *Q: Never Smoker - Caffeine Use Caffeine Use: Reports: Coffee - Recreational Drug Use Recreational Drug Use: No ED ROS GENERAL - Review of Systems Review Of Systems: See Below Constitutional: Reports: Fatigue. Denies: Fever, Chills, Weight Loss, Weight Gain HEENT: Reports: No Symptoms Respiratory: Reports: No Symptoms Cardiovascular: Reports: Dyspnea on Exertion, Lightheadedness, Palpitations. Denies: Chest Pain, Edema Endocrine: Reports: Fatigue GI/Abdominal: Reports: Nausea. Denies: Abdominal Pain, Difficulty Swallowing, Vomiting : Reports: No Symptoms Musculoskeletal: Reports: No Symptoms Neurological: Reports: Dizziness ED EXAM, GENERAL - Physical Exam Exam: See Below Exam Limited By: No Limitations General Appearance: Alert, No Apparent Distress Respiratory/Chest: No Respiratory Distress, Lungs Clear, Normal Breath Sounds Cardiovascular: Normal Peripheral Pulses, No Murmur, Irregularly Irregular GI/Abdominal: Normal Bowel Sounds, Soft, Non-Tender Neurological: Alert, Oriented Course - Vital Signs Last Recorded V/S: Last Vital Signs Temp 35.8 C 09/11/18 09:26 Pulse 66 09/11/18 09:26 Resp 13 09/11/18 13:10 BP 113/64 09/11/18 13:10 Pulse Ox 97 09/11/18 13:10 - Orders/Labs/Meds Labs: Laboratory Tests 09/11/18 09/11/18 09/11/18 Range/Units 10:05 10:05 10:05 WBC 4.8 (4.5-11.0) K/uL RBC 4.26 L (4.30-5.90) M/uL Hgb 13.5 (12.0-15.0) g/dL Hct 41.0 (40.0-54.0) % MCV 96 (80-98) fL MCH 32 H (27-31) pg MCHC 33 (32-36) % Plt Count 123 L (150-400) K/uL Neut % (Auto) 52 (36-66) % Lymph % (Auto) 31 (24-44) % [place] % (Auto) 12 H (2-6) % Eos % (Auto) 5 H (2-4) % Baso % (Auto) 1 (0-1) % PT 25.7 H (9.5-12.0) sec INR 2.46 H (0.80-1.20) Sodium 136 L (140-148) mmol/L Potassium 4.1 (3.6-5.2) mmol/L Chloride 104 (100-108) mmol/L Carbon Dioxide 25 (21-32) mmol/L Anion Gap 11.1 (5.0-14.0) mmol/L BUN 19 H (7-18) mg/dL Creatinine 0.9 (0.8-1.3) mg/dL Est Cr Clr Drug Dosing 72.10 mL/min Estimated GFR (MDRD) > 60 (>60) Glucose 113 H (74-106) mg/dL Calcium 8.6 (8.5-10.1) mg/dL Magnesium 2.0 (1.8-2.4) mg/dL Total Bilirubin 0.8 D (0.2-1.0) mg/dL AST 27 (15-37) U/L ALT 24 (12-78) U/L Alkaline Phosphatase 50 (46-116) U/L Troponin I < 0.017 (0.000-0.056) ng/mL Total Protein 6.6 (6.4-8.2) g/dL Albumin 3.3 L (3.4-5.0) g/dL Globulin 3.3 (2.3-3.5) g/dL Albumin/Globulin Ratio 1.0 L (1.2-2.2) Meds: Medications Discontinued Medications Generic Name Dose Route Start Last Admin Trade Name Freq PRN Reason Stop Dose Admin Sodium Chloride 1,000 mls @ 100 mls/hr 09/11/18 11:30 09/11/18 11:24 Normal Saline IV 100 mls/hr ASDIRECTED MEG Administration Propofol Confirm 09/11/18 12:07 Diprivan 20 Ml Administered 09/11/18 12:08 Dose 200 mg .ROUTE .STK-MED ONE Sodium Chloride 10 ml 09/11/18 09:52 09/11/18 10:34 Saline Flush FLUSH 10 ml ASDIRECTED PRN Administration Keep Vein Open Departure - Departure Time of Disposition: 13:45 Disposition: Home, Self-Care 01 Condition: Good Clinical Impression: Atrial fibrillation Instructions: Chemical Cardioversion, Atrial Fibrillation, [id number] Referrals: Stefan Mcelroy MD [Primary Care Provider] - Forms: ED Department Discharge Additional Instructions: Patient will be following up with primary care provider. Care Plan Goals: Return if symptoms become acutely worse. - Problem List & Annotations (1) Atrial fibrillation SNOMED Code(s): 03362000 Code(s): I48.91 - UNSPECIFIED ATRIAL FIBRILLATION Status: Acute - Problem List Review Problem List Initiated/Reviewed/Updated: Yes
--- NOTE | 2018-09-11 10:34 | CR ---
CHEST: Portable CLINICAL HISTORY:Chest pain COMPARISON:2018 FINDINGS: Patient has had previous coronary artery bypass. Heart size and pulmonary vascularity are normal. Lungs are hyperaerated but clear. There is no pneumothorax Impression: Previous coronary artery bypass Hyperinflation No acute cardiopulmonary process.
[2018-09-11] MEDS ORDERED: Sodium Chloride 0.9% 1,000 ML IV SCH (11:30)
[2018-09-11] MEDS ORDERED: Propofol 200 MG/20 ML SDV ONE (12:07)
[2018-09-11 13:20] VITALS: BP 113/64
--- NOTE | 2018-09-11 13:22 | PCM.PRNOTE ---
- Free Text/Narrative Note: Date of service: 09/11/2018 Proposed procedure: synchronized cardioversion Preprocedure diagnosis: symptomatically atrial fibrillation Post procedure diagnosis: symptomatic atrial fibrillation Indication for procedure: William was evaluated today for management atrial fibrillation with symptoms of fatigue and palpitations. Synchronized cardioversion was recommended as a primary treatment. he is chronically anticoagulated. Description of the procedure: William is currently located [facility]. We have reviewed the potential risks of electrical cardioversion including but not limited to: Superficial skin baker, ineffective treatment, other arrhythmias, reaction to anesthesia medications or potentially asystole. The benefits of the procedure have also been reviewed. At this time the patient wishes to proceed with electrical cardioversion. All necessary pre-procedure information and paperwork has been provided and completed, respectively. The patient was connected to cardioversion pads and monitoring equipment per protocol. Prior to the procedure, a timeout was held with nursing and anesthesia present to confirm the right patient and right procedure. Once appropriate anesthesia was applied the machine was charged to 200 Joules and a synchronized electrical shock was applied. The patient was successfully converted to normal sinus rhythm based on telemetry monitoring. They will remain in their current location until anesthesia has dissipated and the patient is more awake and alert. They will then be discharged to home once medically stable. Anticoagulation should be continued indefinitely post cardioversion. There were no immediate complications noted from the procedure. Post procedure EKG is pending at the time of dictation. Sami Santos M.D.
== END 2018-09-11 13:51 | disposition home or self-care (01) ==
LOC: JP.ED 09:13
DX: I48.91 Unspecified atrial fibrillation (principal); I10 Essential (primary) hypertension; E78.00 Pure hypercholesterolemia, unspecified; K21.9 Gastro-esophageal reflux disease without esophagitis; Z88.8 Allergy status to other drugs, medicaments and biological substances; Z79.899 Other long term (current) drug therapy; Z79.82 Long term (current) use of aspirin
CPT/HCPCS: 36415; 71045; 80053; 83735; 84484; 85025; 85610; 92960; 93005; 93010; 96360; 96361; 99284; J2704; J7030

== ENCOUNTER 2018-11-25 22:31 | Emergency (ER) | payer MEDICARE, BC ==
[2018-11-25] MEDS ORDERED: Aspirin 81 MG Tab.Chew PO ONE (22:32)
[2018-11-25] MEDS ORDERED: Sodium Chloride 0.9% 10 ML Syringe FLUSH PRN (22:35)
--- NOTE | 2018-11-25 22:40 | EDM.PDOC ---
ED HPI GENERAL MEDICAL PROBLEM - General Chief Complaint: Chest Pain Stated Complaint: HEART Time Seen by Provider: 11/25/18 22:35 Source of Information: Reports: Patient, Old Records, RN History Limitations: Reports: No Limitations - History of Present Illness INITIAL COMMENTS - FREE TEXT/NARRATIVE: 78 yo male with known CAD presents with chest pressure that awoke him from sleep about 9:50 pm tonight. Got partial relief with NTG x [address]. His angina usually feels like substernal burning. Has mild nausea. No sweating or SOB. Feels like his heart is beating more quickly than usual. Has a hx of afib. Onset: Today Onset Date: 11/25/18 Onset Time: 21:50 Duration: Minutes:, Improving (after NTG) Location: Reports: Chest Quality: Reports: Pressure Severity: Moderate (was severe before NTG) Improves with: Reports: Medication (NTG SL) Worsens with: Reports: Other (unknown) Context: Reports: Other (Hx of CAD) Associated Symptoms: Reports: Chest Pain, Nausea/Vomiting (mild nausea, no vomiting). Denies: Diaphoresis, Fever/Chills, Syncope Treatments [employer]/FI[employer]MAN: Reports: Nitroglycerin Anterior Chest Pain Score (Numeric/FACES): 0 - Related Data Allergies Allergy/AdvReac Type Severity Reaction Status Date / Time procainamide Allergy Other Verified 11/25/18 22:40 ranolazine [From Ranexa] Allergy Other Verified 11/25/18 22:40 rosuvastatin [From Crestor] AdvReac Joint Pain Verified 11/25/18 22:40 simvastatin AdvReac Muscle Verified 11/25/18 22:40 Aches Home Meds: Home Meds Docusate Sodium [Colace] 50 mg PO QID 04/10/15 [History] Isosorbide Mononitrate [Imdur] 120 mg PO QAM 04/10/15 [History] Nitroglycerin [Nitrostat] 0.4 mg SL ASDIRECTED PRN 04/10/15 [History] atorvaSTATin [Lipitor] 80 mg PO DAILY 04/10/15 [History] Aspirin [Adult Low Dose Aspirin EC] 81 mg PO DAILY 05/08/17 [History] Citalopram Hydrobromide [Celexa] 20 mg PO DAILY 05/08/17 [History] Multivitamin with Minerals [Multiple Vitamin] 1 tab PO DAILY 05/08/17 [History] QUEtiapine [SEROquel] 50 mg PO BEDTIME 05/08/17 [History] Triamcinolone Acetonide [Kenalog 0.1% Crm] 1 applic TOP BID 05/08/17 [History] amLODIPine [Norvasc] 10 mg PO DAILY 05/08/17 [History] Warfarin [Coumadin] 3.75 mg PO DAILY 06/15/17 [History] Metoprolol Tartrate 50 mg PO DAILY 07/22/17 [History] Past Medical History HEENT History: Reports: Impaired Vision Cardiovascular History: Reports: Afib, Bypass, High Cholesterol, Hypertension, [place], Stents Other Cardiovascular History: recent cardioversion from atrial fib. Pt. started on metoprolol and DCd cozaar and tenormin. Pt. took metoprolol in the evening instead of morning yesterday and thinks this may be the cause of his nausea and abd. pain. Respiratory History: Reports: Asthma Gastrointestinal History: Reports: Colon Polyp, GERD, Other (See Below) Other Gastrointestinal History: pre ulcers Genitourinary History: Reports: Prostate Disorder Musculoskeletal History: Reports: Arthritis, Fracture Neurological History: Reports: Neuropathy, Peripheral Hematologic History: Reports: Blood Transfusion(s), Other (See Below) Other Hematologic History: for open heart surgery Oncologic (Cancer) History: Reports: Other (See Below) Other Oncologic History: possible skin cancer on nose Dermatologic History: Reports: Psoriasis - Infectious Disease History Infectious Disease History: Reports: Influenza, Measles, Mumps - Past Surgical History Cardiovascular Surgical History: Reports: Carotid Endarterectomy, Coronary Artery Bypass, Coronary Artery Stent Other Cardiovascular Surgeries/Procedures: carotid surgery left side GI Surgical History: Reports: Colonoscopy, Hernia, Inguinal Other GI Surgeries/Procedures: left ing. hernia Male Surgical History: Reports: TURP-Transurethral Resection of Prostate Other Male Surgeries/Procedures: Musculoskeletal Surgical History: Reports: Other (See Below) Other Musculoskeletal Surgeries/Procedures:: dislocated left shoulder, fx left wrist as child Social & Family History - Caffeine Use Caffeine Use: Reports: Coffee ED ROS GENERAL - Review of Systems Review Of Systems: See Below Constitutional: Reports: No Symptoms HEENT: Reports: No Symptoms Respiratory: Reports: No Symptoms Cardiovascular: Reports: Chest Pain Endocrine: Reports: No Symptoms GI/Abdominal: Reports: Nausea (mild). Denies: Abdominal Pain, Black Stool, Bloody Stool, Constipation, Diarrhea, Distension, Hematemesis, Hematochezia, Vomiting : Reports: No Symptoms Musculoskeletal: Reports: No Symptoms Skin: Reports: No Symptoms Neurological: Reports: No Symptoms Psychiatric: Reports: No Symptoms ED EXAM, GENERAL - Physical Exam Exam: See Below Exam Limited By: No Limitations General Appearance: Alert, WD/WN, No Apparent Distress Eye Exam: Bilateral Eye: Normal Inspection Ears: Normal External Exam, Normal Canal, Hearing Loss Ear Exam: Bilateral Ear: Auricle Normal, Canal Normal Nose: Normal Inspection, No Blood Throat/Mouth: Normal Inspection, Normal Lips, Normal Oropharynx, Normal Voice, No Airway Compromise Head: Atraumatic, Normocephalic Neck: Normal Inspection Respiratory/Chest: No Respiratory Distress, Lungs Clear, Normal Breath Sounds, No Accessory Muscle Use, Chest Non-Tender Cardiovascular: Regular Rate, Rhythm, No Edema, Tachycardia GI/Abdominal: Normal Bowel Sounds, Soft, Non-Tender, No Distention Back Exam: Normal Inspection. No: CVA Tenderness (R), CVA Tenderness (L) Extremities: Normal Inspection, Normal Range of Motion, Non-Tender, No Pedal Edema Neurological: Alert, Oriented, CN II-XII Intact, Normal Cognition, No Motor/ Sensory Deficits Psychiatric: Normal Affect, Normal Mood Skin Exam: Warm, Dry, Intact, Normal Color, No Rash EKG INTERPRETATION EKG Date: 11/25/18 Time: 22:15 Rhythm: NSR Rate (Beats/Min): 110 [place]: Normal P-Wave: Absent QRS: RBBB ST-T: Depressed QT: Normal Comparison: Change From Previous EKG Course - Vital Signs Text/Narrative:: Pain abruptly resolved while he was getting his IV metoprolol 5 mg and his rate slowed to low 60's. Repeat EKG shows resolution of his ST depression. Last Recorded V/S: Last Vital Signs Temp 36.2 C 11/25/18 22:38 Pulse 52 L 11/25/18 23:36 Resp 18 11/25/18 22:38 BP 127/57 L 11/25/18 23:36 Pulse Ox 100 11/25/18 22:38 - Orders/Labs/Meds Orders: Active Orders 24 hr Category Date Time Status Cardiac Monitoring [RC] .As Directed Care 11/25/18 22:36 Active EKG Documentation Completion [RC] ASDIRECTED Care 11/25/18 22:36 Active EKG Documentation Completion [RC] ASDIRECTED Care 11/25/18 23:12 Active Nitroglycerin [Nitrostat] Med 11/25/18 22:36 Active 0.4 mg SL Q5M PRN Sodium Chloride 0.9% [Saline Flush] Med 11/25/18 22:35 Active 10 ml FLUSH ASDIRECTED PRN Saline Lock Insert [OM.PC] Routine Oth 11/25/18 22:35 Ordered EKG 12 Lead [EK] Routine Ther 11/25/18 22:36 Ordered EKG 12 Lead [EK] Routine Ther 11/25/18 23:12 Ordered Medication Orders Nitroglycerin (Nitrostat) 0.4 mg SL Q5M PRN PRN Reason: Chest Pain Last Admin: 11/25/18 22:59 Dose: 0.4 mg Admin: 11/25/18 22:53 Dose: 0.4 mg Sodium Chloride (Saline Flush) 10 ml FLUSH ASDIRECTED PRN PRN Reason: Keep Vein Open Last Admin: 11/25/18 22:35 Dose: 10 ml Labs: Laboratory Tests 11/25/18 11/25/18 11/25/18 Range/Units 22:44 22:44 22:44 WBC 6.5 (4.5-11.0) K/uL RBC 4.17 L (4.30-5.90) M/uL Hgb 13.3 (12.0-15.0) g/dL Hct 40.6 (40.0-54.0) % MCV 97 (80-98) fL MCH 32 H (27-31) pg MCHC 33 (32-36) % Plt Count 135 L (150-400) K/uL PT 30.8 H (9.5-12.0) sec INR 2.98 H (0.80-1.20) Sodium 139 L (140-148) mmol/L Potassium 3.8 (3.6-5.2) mmol/L Chloride 104 (100-108) mmol/L Carbon Dioxide 29 (21-32) mmol/L Anion Gap 9.8 (5.0-14.0) mmol/L BUN 23 H (7-18) mg/dL Creatinine 1.2 (0.8-1.3) mg/dL Est Cr Clr Drug Dosing 54.07 mL/min Estimated GFR (MDRD) 59 L (>60) Glucose 113 H (74-106) mg/dL Calcium 8.4 L (8.5-10.1) mg/dL Magnesium (1.8-2.4) mg/dL Troponin I < 0.017 (0.000-0.056) ng/mL Urine Color Urine Appearance Urine pH (4.5-8.0) Ur Specific [place] (1.008-1.030) Urine Protein (NEGATIVE) mg/dL Urine Glucose (UA) (NEGATIVE) mg/dL Urine Ketones (NEGATIVE) mg/dL Urine Occult Blood (NEGATIVE) Urine Nitrite (NEGAITVE) Urine Bilirubin (NEGATIVE) Urine Urobilinogen (NORMAL) mg/dL Ur Leukocyte Esterase (NEGATIVE) Urine RBC (0-5) Urine WBC (0-5) Ur Epithelial Cells Amorphous Sediment Urine Bacteria Urine Mucus 11/25/18 11/25/18 11/26/18 Range/Units 23:01 23:14 01:25 WBC (4.5-11.0) K/uL RBC (4.30-5.90) M/uL Hgb (12.0-15.0) g/dL Hct (40.0-54.0) % MCV (80-98) fL MCH (27-31) pg MCHC (32-36) % Plt Count (150-400) K/uL PT (9.5-12.0) sec INR (0.80-1.20) Sodium (140-148) mmol/L Potassium (3.6-5.2) mmol/L Chloride (100-108) mmol/L Carbon Dioxide (21-32) mmol/L Anion Gap (5.0-14.0) mmol/L BUN (7-18) mg/dL Creatinine (0.8-1.3) mg/dL Est Cr Clr Drug Dosing mL/min Estimated GFR (MDRD) (>60) Glucose (74-106) mg/dL Calcium (8.5-10.1) mg/dL Magnesium 1.9 (1.8-2.4) mg/dL Troponin I 0.195 H* (0.000-0.056) ng/mL Urine Color Yellow Urine Appearance Clear Urine pH 6.0 (4.5-8.0) Ur Specific [place] 1.015 (1.008-1.030) Urine Protein Negative (NEGATIVE) mg/dL Urine Glucose (UA) Normal (NEGATIVE) mg/dL Urine Ketones Negative (NEGATIVE) mg/dL Urine Occult Blood Negative (NEGATIVE) Urine Nitrite Negative (NEGAITVE) Urine Bilirubin Negative (NEGATIVE) Urine Urobilinogen Normal (NORMAL) mg/dL Ur Leukocyte Esterase Negative (NEGATIVE) Urine RBC 0-5 (0-5) Urine WBC 0-5 (0-5) Ur Epithelial Cells Rare Amorphous Sediment Not seen Urine Bacteria Few Urine Mucus Not seen Meds: Medications Generic Name Dose Route Start Last Admin Trade Name Freq PRN Reason Stop Dose Admin Nitroglycerin 0.4 mg 11/25/18 22:36 11/25/18 22:59 Nitrostat SL 0.4 mg Q5M PRN Administration Chest Pain Sodium Chloride 10 ml 11/25/18 22:35 11/25/18 22:35 Saline Flush FLUSH 10 ml ASDIRECTED PRN Administration Keep Vein Open Discontinued Medications Generic Name Dose Route Start Last Admin Trade Name Freq PRN Reason Stop Dose Admin Aspirin 324 mg 11/25/18 22:32 11/25/18 22:53 Aspirin PO 11/25/18 22:33 324 mg ONETIME ONE Administration Metoprolol Tartrate 5 mg/ 55 mls @ 100 mls/hr 11/25/18 22:41 Sodium Chloride IV 11/25/18 23:13 ONETIME ONE Metoprolol Tartrate 5 mg 11/25/18 22:45 11/25/18 22:56 Lopressor IVPUSH 11/25/18 22:46 5 mg ONETIME ONE Administration Departure - Departure Time of Disposition: 02:30 Disposition: DC/Tfer to Acute Hospital 02 Reason for Transfer *Q: Other Condition: Serious Clinical Impression: Elevated troponin I level Chest pain Qualifiers: Chest pain type: chest pain due to myocardial ischemia Ischemic chest pain type : unstable angina pectoris Qualified Code(s): I20.0 - Unstable angina Referrals: PCP,None [Primary Care Provider] - Forms: ED Department Discharge - My Orders Last 24 Hours: My Active Orders 11/25/18 22:35 Sodium Chloride 0.9% [Saline Flush] 10 ml FLUSH ASDIRECTED PRN Saline Lock Insert [OM.PC] Routine 11/25/18 22:36 Cardiac Monitoring [RC] .As Directed EKG Documentation Completion [RC] ASDIRECTED Nitroglycerin [Nitrostat] 0.4 mg SL Q5M PRN EKG 12 Lead [EK] Routine 11/25/18 23:12 EKG Documentation Completion [RC] ASDIRECTED EKG 12 Lead [EK] Routine - Assessment/Plan Last 24 Hours: My Active Orders 11/25/18 22:35 Sodium Chloride 0.9% [Saline Flush] 10 ml FLUSH ASDIRECTED PRN Saline Lock Insert [OM.PC] Routine 11/25/18 22:36 Cardiac Monitoring [RC] .As Directed EKG Documentation Completion [RC] ASDIRECTED Nitroglycerin [Nitrostat] 0.4 mg SL Q5M PRN EKG 12 Lead [EK] Routine 11/25/18 23:12 EKG Documentation Completion [RC] ASDIRECTED EKG 12 Lead [EK] Routine
[2018-11-25] MEDS ORDERED: Metoprolol Tartrate 5 MG in Sodium Chloride 0.9% 50 ML IV ONE (22:41)
[2018-11-25] MEDS ORDERED: Metoprolol Tartrate 5 MG/5 ML SDV IVPUSH ONE (22:45)
[2018-11-25] MEDS: Nitroglycerin 0.4 MG Tab.SL SL PRN ×2 (22:53→22:59)
[2018-11-26 02:52] VITALS: BP 153/69
== END 2018-11-26 03:27 ==
LOC: JP.ED 22:31
DX: I20.0 Unstable angina (principal); R79.89 Other specified abnormal findings of blood chemistry; I10 Essential (primary) hypertension; E78.00 Pure hypercholesterolemia, unspecified; I48.91 Unspecified atrial fibrillation; I25.2 Old myocardial infarction; K21.9 Gastro-esophageal reflux disease without esophagitis; Z79.899 Other long term (current) drug therapy; Z79.82 Long term (current) use of aspirin; Z79.01 Long term (current) use of anticoagulants
CPT/HCPCS: 36415; 80048; 81001; 83735; 84484; 85027; 85610; 93005; 93010; 96374; 99285; A9270; J3490

== ENCOUNTER 2019-09-28 01:12 | Emergency (ER) | payer MEDICARE, BC ==
--- NOTE | 2019-09-28 01:44 | EDM.PDOC ---
ED HPI GENERAL MEDICAL PROBLEM - General Chief Complaint: Cardiovascular Problem Stated Complaint: A-FIB Time Seen by Provider: 09/28/19 01:35 Source of Information: Reports: Patient History Limitations: Reports: No Limitations - History of Present Illness INITIAL COMMENTS - FREE TEXT/NARRATIVE: pt arrived with a feeling of pressure in his chest and a heart rate of 118. This is a regular rhythm with a probable 2 to 1 atrial flutter. He has been using alot of nitro at home because of the chest pressure. [place] was at the [place] in [facility] and he thinks he was in atrial fib while he was there He was on mtoprool 100mg daily and that was stopped completely at the [facility]. He came home on the and he has had problems since that time. Onset: Gradual Duration: Day(s): Location: Reports: Chest Associated Symptoms: Reports: Shortness of Breath, Other ( chest pressure. ) Chest Pain Score (Numeric/FACES): 2 - Related Data Allergies Allergy/AdvReac Type Severity Reaction Status Date / Time procainamide Allergy Other Verified 09/28/19 01:29 ranolazine [From Ranexa] Allergy Other Verified 09/28/19 01:29 rosuvastatin [From Crestor] AdvReac Joint Pain Verified 09/28/19 01:29 simvastatin AdvReac Muscle Verified 09/28/19 01:29 Aches Home Meds: Home Meds Docusate Sodium [Colace] 50 mg PO QID 04/10/15 [History] Isosorbide Mononitrate [Imdur] 120 mg PO QAM 04/10/15 [History] Nitroglycerin [Nitrostat] 0.4 mg SL ASDIRECTED PRN 04/10/15 [History] atorvaSTATin [Lipitor] 80 mg PO DAILY 04/10/15 [History] Citalopram Hydrobromide [Celexa] 20 mg PO DAILY 05/08/17 [History] Multivitamin with Minerals [Multiple Vitamin] 1 tab PO DAILY 05/08/17 [History] QUEtiapine [SEROquel] 25 mg PO BEDTIME 05/08/17 [History] amLODIPine [Norvasc] 10 mg PO DAILY 05/08/17 [History] Warfarin [Coumadin] 7.5 mg PO DAILY 06/15/17 [History] Cyanocobalamin (Vitamin B-12) [B-12] 1 tab PO DAILY 09/28/19 [History] Ezetimibe 10 mg PO DAILY 09/28/19 [History] Finasteride 5 mg PO DAILY 09/28/19 [History] Losartan [Cozaar] 100 mg PO DAILY 09/28/19 [History] Pantoprazole Sodium [Protonix] 40 mg PO DAILY 09/28/19 [History] Past Medical History HEENT History: Reports: Impaired Vision Cardiovascular History: Reports: Afib, Bypass, High Cholesterol, Hypertension, PA, Stents Other Cardiovascular History: recent cardioversion from atrial fib. Pt. started on metoprolol and DCd cozaar and tenormin. Pt. took metoprolol in the evening instead of morning yesterday and thinks this may be the cause of his nausea and abd. pain. Respiratory History: Reports: Asthma Gastrointestinal History: Reports: Colon Polyp, GERD, Other (See Below) Other Gastrointestinal History: pre ulcers Genitourinary History: Reports: Prostate Disorder Musculoskeletal History: Reports: Arthritis, Fracture Neurological History: Reports: Neuropathy, Peripheral Hematologic History: Reports: Blood Transfusion(s), Other (See Below) Other Hematologic History: for open heart surgery Oncologic (Cancer) History: Reports: Other (See Below) Other Oncologic History: possible skin cancer on nose Dermatologic History: Reports: Psoriasis - Infectious Disease History Infectious Disease History: Reports: Influenza, Measles, Mumps - Past Surgical History Cardiovascular Surgical History: Reports: Carotid Endarterectomy, Coronary Artery Bypass, Coronary Artery Stent Other Cardiovascular Surgeries/Procedures: carotid surgery left side GI Surgical History: Reports: Colonoscopy, Hernia, Inguinal Other GI Surgeries/Procedures: left ing. hernia Male Surgical History: Reports: TURP-Transurethral Resection of Prostate Other Male Surgeries/Procedures: Musculoskeletal Surgical History: Reports: Other (See Below) Other Musculoskeletal Surgeries/Procedures:: dislocated left shoulder, fx left wrist as child Social & Family History - Caffeine Use Caffeine Use: Reports: Coffee ED ROS GENERAL - Review of Systems Review Of Systems: See Below Constitutional: Reports: Weakness, Fatigue HEENT: Reports: No Symptoms Respiratory: Reports: Shortness of Breath Cardiovascular: Reports: Other (pt is having chest pressure. ) Endocrine: Reports: No Symptoms GI/Abdominal: Reports: No Symptoms : Reports: No Symptoms Musculoskeletal: Reports: No Symptoms Skin: Reports: No Symptoms ED EXAM, GENERAL - Physical Exam Exam: See Below Free Text/Narrative:: pt arrived feeling chest pressure. He feels like his heart rate is running very fast. He is mildly sob. Exam Limited By: No Limitations General Appearance: Alert, Mild Distress Ears: Normal TMs Nose: Normal Inspection Throat/Mouth: Normal Inspection Head: Atraumatic Neck: Normal Inspection Respiratory/Chest: No Respiratory Distress Cardiovascular: Regular Rate, Rhythm GI/Abdominal: Soft, Non-Tender (Male) Exam: Deferred Rectal (Males) Exam: Deferred Back Exam: Normal Inspection Extremities: Normal Inspection, Other (no sig edema. ) Neurological: Alert, Oriented, Normal Cognition Psychiatric: Normal Affect Course - Vital Signs Last Recorded V/S: Last Vital Signs Temp 35.9 C L 09/28/19 02:41 Pulse 115 H 09/28/19 03:01 Resp 18 09/28/19 03:01 BP 122/78 09/28/19 03:01 Pulse Ox 97 09/28/19 03:01 - Orders/Labs/Meds Orders: Active Orders 24 hr Category Date Time Status EKG Documentation Completion [RC] ASDIRECTED Care 09/28/19 01:34 Active Chest 1V Frontal [CR] Stat Exams 09/28/19 02:07 Taken EKG 12 Lead [EK] Routine Ther 09/28/19 01:34 Ordered Labs: Laboratory Tests 09/28/19 09/28/19 09/28/19 Range/Units 01:30 01:30 01:30 WBC 4.9 (4.5-11.0) K/uL RBC 3.89 L (4.30-5.90) M/uL Hgb 12.3 (12.0-15.0) g/dL Hct 38.2 L (40.0-54.0) % MCV 98 (80-98) fL MCH 32 H (27-31) pg MCHC 32 (32-36) % Plt Count 124 L (150-400) K/uL Neut % (Auto) 34 L (36-66) % Lymph % (Auto) 44 (24-44) % Snyder % (Auto) 14 H (2-6) % Eos % (Auto) 7 H (2-4) % Baso % (Auto) 1 (0-1) % PT (9.5-12.0) sec INR (0.80-1.20) Sodium 141 (140-148) mmol/L Potassium 3.8 (3.6-5.2) mmol/L Chloride 104 (100-108) mmol/L Carbon Dioxide 26 (21-32) mmol/L Anion Gap 10.8 (5.0-14.0) mmol/L BUN 18 (7-18) mg/dL Creatinine 1.1 (0.8-1.3) mg/dL Est Cr Clr Drug Dosing 58.07 mL/min Estimated GFR (MDRD) > 60 (>60) Glucose 112 H (74-106) mg/dL Calcium 8.2 L (8.5-10.1) mg/dL Magnesium (1.8-2.4) mg/dL Total Bilirubin 0.7 (0.2-1.0) mg/dL AST 37 (15-37) U/L ALT 33 (12-78) U/L Alkaline Phosphatase 55 (46-116) U/L Troponin I 0.390 H* (0.000-0.056) ng/mL Total Protein 6.1 L (6.4-8.2) g/dL Albumin 3.1 L (3.4-5.0) g/dL Globulin 3.0 (2.3-3.5) g/dL Albumin/Globulin Ratio 1.0 L (1.2-2.2) TSH, Ultra Sensitive (0.358-3.740) uIU/mL 09/28/19 09/28/19 Range/Units 01:45 02:11 WBC (4.5-11.0) K/uL RBC (4.30-5.90) M/uL Hgb (12.0-15.0) g/dL Hct (40.0-54.0) % MCV (80-98) fL MCH (27-31) pg MCHC (32-36) % Plt Count (150-400) K/uL Neut % (Auto) (36-66) % Lymph % (Auto) (24-44) % Snyder % (Auto) (2-6) % Eos % (Auto) (2-4) % Baso % (Auto) (0-1) % PT 28.6 H (9.5-12.0) sec INR 2.81 H (0.80-1.20) Sodium (140-148) mmol/L Potassium (3.6-5.2) mmol/L Chloride (100-108) mmol/L Carbon Dioxide (21-32) mmol/L Anion Gap (5.0-14.0) mmol/L BUN (7-18) mg/dL Creatinine (0.8-1.3) mg/dL Est Cr Clr Drug Dosing mL/min Estimated GFR (MDRD) (>60) Glucose (74-106) mg/dL Calcium (8.5-10.1) mg/dL Magnesium 2.0 (1.8-2.4) mg/dL Total Bilirubin (0.2-1.0) mg/dL AST (15-37) U/L ALT (12-78) U/L Alkaline Phosphatase (46-116) U/L Troponin I (0.000-0.056) ng/mL Total Protein (6.4-8.2) g/dL Albumin (3.4-5.0) g/dL Globulin (2.3-3.5) g/dL Albumin/Globulin Ratio (1.2-2.2) TSH, Ultra Sensitive 3.857 H (0.358-3.740) uIU/mL Meds: Medications Discontinued Medications Generic Name Dose Route Start Last Admin Trade Name Alfred PRN Reason Stop Dose Admin Adenosine 6 mg 09/28/19 01:50 09/28/19 01:56 Adenocard IVPUSH 09/28/19 01:51 6 mg NOW ONE Administration Hydromorphone HCl 0.5 mg 09/28/19 02:42 09/28/19 02:45 Dilaudid IVPUSH 09/28/19 02:43 0.5 mg ONETIME ONE Administration Nitroglycerin/Dextrose 25 mg in 250 mls @ 6 mls/hr 09/28/19 02:30 09/28/19 02 :41 Nitroglycerin 25 Mg/D5w 250 Ml IV 15 mcg/min TITRATE MEG 9 mls/hr Titration Protocol 10 MCG/MIN Metoprolol Tartrate 2.5 mg 09/28/19 02:15 09/28/19 02:21 Lopressor IVPUSH 09/28/19 02:16 2.5 mg ONETIME ONE Administration Nitroglycerin 0.4 mg 09/28/19 01:47 09/28/19 01:49 Nitrostat SL 09/28/19 01:48 0.4 mg ONETIME STA Administration Nitroglycerin Confirm 09/28/19 01:48 09/28/19 01:56 Nitrostat Administered 09/28/19 01:49 Not Given Dose 0.4 mg .ROUTE .STtic-MED ONE - Re-Assessments/Exams Free Text/Narrative Re-Assessment/Exam: 09/28/19 02:36 pt was given adenogard 6 mg iv and he appears to be in atrial flutter 2-1 conduction. Pt had a elevated trop at .390. He had chest pressure on arrival and was given a nitro which gave him relief. He had a nitro drip started. He is anticoagulated with warfarin and his inr is 2.8. He was not given plavix per the suggestion of the [facility] ER doctor. His Ekg shows anterlateral evidence of ischemia. Departure - Departure Time of Disposition: 02:41 Disposition: DC/Tfer to Acute Hospital 02 Reason for Transfer *Q: Primary PCI Indicated Condition: Fair Clinical Impression: Atrial flutter, Elevated troponin, History of atrial fibrillation Referrals: PCP,None [Primary Care Provider] - Forms: ED Department Discharge Care Plan Goals: transfer to [facility]. Sepsis Event Note - Evaluation Sepsis Screening Result: No Definite Risk - Focused Exam Date Exam was Performed: 09/28/19 Time Exam was Performed: 18:16 - My Orders Last 24 Hours: My Active Orders 09/28/19 01:34 EKG Documentation Completion [RC] ASDIRECTED EKG 12 Lead [EK] Routine 09/28/19 02:07 Chest 1V Frontal [CR] Stat - Assessment/Plan Last 24 Hours: My Active Orders 09/28/19 01:34 EKG Documentation Completion [RC] ASDIRECTED EKG 12 Lead [EK] Routine 09/28/19 02:07 Chest 1V Frontal [CR] Stat
[2019-09-28] MEDS ORDERED: Nitroglycerin 0.4 MG Tab.SL SL STA (01:47)
[2019-09-28] MEDS ORDERED: Nitroglycerin 0.4 MG Tab.SL ONE (01:48)
[2019-09-28] MEDS ORDERED: Adenosine 6 MG/2 ML SDV IVPUSH ONE (01:50)
[2019-09-28] MEDS ORDERED: Metoprolol Tartrate 5 MG/5 ML SDV IVPUSH ONE (02:15)
[2019-09-28] MEDS ORDERED: Nitroglycerin/D5W 25 MG/250 ML BOTTLE IV SCH (02:30)
[2019-09-28] MEDS ORDERED: HYDROmorphone 0.5 MG/0.5 ML Syringe IVPUSH ONE (02:42)
[2019-09-28 03:10] VITALS: BP 122/78; PULSE 115
--- NOTE | 2019-09-29 11:31 | CR ---
CHEST: Portable 09/28/2019 at 2:24 AM CLINICAL HISTORY:SOB COMPARISON:09/11/2018 FINDINGS: Heart is mildly enlarged. Pulmonary vascularity is normal. There has been previous sternotomy. The no infiltrate, effusion or pneumothorax is seen. Impression: Cardiomegaly Previous sternotomy No acute cardiopulmonary process.
== END 2019-09-28 03:00 ==
LOC: JP.ED 01:12
DX: I48.92 Unspecified atrial flutter (principal); R79.89 Other specified abnormal findings of blood chemistry; I48.91 Unspecified atrial fibrillation; I10 Essential (primary) hypertension; E78.00 Pure hypercholesterolemia, unspecified; K21.9 Gastro-esophageal reflux disease without esophagitis; M19.90 Unspecified osteoarthritis, unspecified site; Z95.1 Presence of aortocoronary bypass graft; Z88.8 Allergy status to other drugs, medicaments and biological substances; Z79.899 Other long term (current) drug therapy; Z79.01 Long term (current) use of anticoagulants
CPT/HCPCS: 36415; 71045; 80053; 83735; 84443; 84484; 85025; 85610; 93005; 93010; 96365; 96375; 99285; A9270; J0153; J1170; J3490

== ENCOUNTER 2019-10-05 11:00 | Emergency (ER) | payer MEDICARE, BC ==
[2019-10-05] MEDS ORDERED: Ondansetron 4 MG/2 ML SDV IVPUSH ONE (11:09)
[2019-10-05] MEDS ORDERED: Sodium Chloride 0.9% 1,000 ML IV SCH ×2 (11:15→12:15)
--- NOTE | 2019-10-05 12:01 | EDM.PDOC ---
ED HPI GENERAL MEDICAL PROBLEM - General Chief Complaint: Cardiovascular Problem Stated Complaint: DIZZY LIGHT HEADED NAUSA Time Seen by Provider: 10/05/19 11:10 Source of Information: Reports: Patient History Limitations: Reports: No Limitations - History of Present Illness INITIAL COMMENTS - FREE TEXT/NARRATIVE: pt arried with a history of having a angiogram at the [facility] in [place] on Sunday and now he is feeling nauseatesd and dizzy. He did have a cardioversion for atrial flutter about 1 week ago, He was told at the [facility] that he should be scheduled for a pacemaker on the because of his bradycardia. The angiogram evidently did not reveal any change from the one 3 years ago, Onset: Today, Sudden, Other (Pt was very fatiqued everytime he woke up. he has not been drinking alot of fluids. He was dizzy-- like the room was spinning. ) Duration: Hour(s): Location: Reports: Head, Generalized Associated Symptoms: Reports: Nausea/Vomiting, Weakness - Related Data Allergies Allergy/AdvReac Type Severity Reaction Status Date / Time procainamide Allergy Other Verified 10/05/19 11:19 ranolazine [From Ranexa] Allergy Other Verified 10/05/19 11:19 rosuvastatin [From Crestor] AdvReac Joint Pain Verified 10/05/19 11:19 simvastatin AdvReac Muscle Verified 10/05/19 11:19 Aches Home Meds: Home Meds Docusate Sodium [Colace] 50 mg PO QID 04/10/15 [History] Isosorbide Mononitrate [Imdur] 120 mg PO QAM 04/10/15 [History] Nitroglycerin [Nitrostat] 0.4 mg SL ASDIRECTED PRN 04/10/15 [History] atorvaSTATin [Lipitor] 80 mg PO DAILY 04/10/15 [History] Citalopram Hydrobromide [Celexa] 20 mg PO DAILY 05/08/17 [History] Multivitamin with Minerals [Multiple Vitamin] 1 tab PO DAILY 05/08/17 [History] QUEtiapine [SEROquel] 25 mg PO BEDTIME 05/08/17 [History] amLODIPine [Norvasc] 10 mg PO DAILY 05/08/17 [History] Warfarin [Coumadin] 7.5 mg PO DAILY 06/15/17 [History] Cyanocobalamin (Vitamin B-12) [B-12] 1 tab PO DAILY 09/28/19 [History] Ezetimibe 10 mg PO DAILY 09/28/19 [History] Finasteride 5 mg PO DAILY 09/28/19 [History] Losartan [Cozaar] 100 mg PO DAILY 09/28/19 [History] Pantoprazole Sodium [Protonix] 40 mg PO DAILY 09/28/19 [History] Past Medical History HEENT History: Reports: Impaired Vision Cardiovascular History: Reports: Afib, Bypass, High Cholesterol, Hypertension, PR, Stents Other Cardiovascular History: recent cardioversion from atrial fib. Pt. started on metoprolol and DCd cozaar and tenormin. Pt. took metoprolol in the evening instead of morning yesterday and thinks this may be the cause of his nausea and abd. pain. Respiratory History: Reports: Asthma Gastrointestinal History: Reports: Colon Polyp, GERD, Other (See Below) Other Gastrointestinal History: pre ulcers Genitourinary History: Reports: Prostate Disorder Musculoskeletal History: Reports: Arthritis, Fracture Neurological History: Reports: Neuropathy, Peripheral Psychiatric History: Reports: Depression Hematologic History: Reports: Blood Transfusion(s), Other (See Below) Other Hematologic History: for open heart surgery Oncologic (Cancer) History: Reports: Other (See Below) Other Oncologic History: possible skin cancer on nose Dermatologic History: Reports: Psoriasis - Infectious Disease History Infectious Disease History: Reports: Influenza, Measles, Mumps - Past Surgical History Cardiovascular Surgical History: Reports: Carotid Endarterectomy, Coronary Artery Bypass, Coronary Artery Stent Other Cardiovascular Surgeries/Procedures: carotid surgery left side GI Surgical History: Reports: Colonoscopy, Hernia, Inguinal Other GI Surgeries/Procedures: left ing. hernia Male Surgical History: Reports: TURP-Transurethral Resection of Prostate Other Male Surgeries/Procedures: Musculoskeletal Surgical History: Reports: Other (See Below) Other Musculoskeletal Surgeries/Procedures:: dislocated left shoulder, fx left wrist as child Social & Family History - Family History Family Medical History: Noncontributory - Tobacco Use Smoking Status *Q: Never Smoker - Caffeine Use Caffeine Use: Reports: Coffee ED ROS GENERAL - Review of Systems Review Of Systems: See Below Constitutional: Reports: Weakness HEENT: Reports: No Symptoms Respiratory: Reports: No Symptoms Cardiovascular: Reports: Other (bradycardia) Endocrine: Reports: Fatigue GI/Abdominal: Reports: Nausea : Reports: No Symptoms Musculoskeletal: Reports: No Symptoms Skin: Reports: No Symptoms ED EXAM, GENERAL - Physical Exam Exam: See Below Free Text/Narrative:: pt felt very nauseated and felt lite headed. He had aangiogram done on Sunday. He has been cece with his heart rate in the 40s. Exam Limited By: No Limitations General Appearance: Alert, Anxious, Other ( very weak appearing. ) Ears: Normal TMs Nose: Normal Inspection Throat/Mouth: Normal Inspection Head: Atraumatic Neck: Normal Inspection Respiratory/Chest: No Respiratory Distress Cardiovascular: Regular Rate, Rhythm GI/Abdominal: Soft, Non-Tender (Male) Exam: Deferred Rectal (Males) Exam: Deferred Back Exam: Normal Inspection Extremities: Normal Inspection Neurological: Alert, Oriented, Normal Cognition Psychiatric: Anxious Course - Vital Signs Last Recorded V/S: Last Vital Signs Temp 35.4 C L 10/05/19 11:26 Pulse 47 L 10/05/19 14:36 Resp 23 H 10/05/19 14:36 BP 116/55 L 10/05/19 14:36 Pulse Ox 96 10/05/19 14:06 - Orders/Labs/Meds Labs: Laboratory Tests 10/05/19 10/05/19 10/05/19 Range/Units 11:18 11:18 13:57 WBC 5.3 (4.5-11.0) K/uL RBC 3.65 L (4.30-5.90) M/uL Hgb 11.9 L (12.0-15.0) g/dL Hct 36.6 L (40.0-54.0) % MCV 100 H (80-98) fL MCH 33 H (27-31) pg MCHC 33 (32-36) % Plt Count 137 L (150-400) K/uL Neut % (Auto) 50 (36-66) % Lymph % (Auto) 33 (24-44) % Wilcox % (Auto) 11 H (2-6) % Eos % (Auto) 6 H (2-4) % Baso % (Auto) 1 (0-1) % Sodium 138 L (140-148) mmol/L Potassium 4.1 (3.6-5.2) mmol/L Chloride 104 (100-108) mmol/L Carbon Dioxide 29 (21-32) mmol/L Anion Gap 9.1 (5.0-14.0) mmol/L BUN 23 H (7-18) mg/dL Creatinine 1.1 (0.8-1.3) mg/dL Est Cr Clr Drug Dosing 58.07 mL/min Estimated GFR (MDRD) > 60 (>60) Glucose 99 (74-106) mg/dL Calcium 8.3 L (8.5-10.1) mg/dL Total Bilirubin 0.8 (0.2-1.0) mg/dL AST 26 (15-37) U/L ALT 33 (12-78) U/L Alkaline Phosphatase 51 (46-116) U/L Total Protein 6.2 L (6.4-8.2) g/dL Albumin 3.2 L (3.4-5.0) g/dL Globulin 3.0 (2.3-3.5) g/dL Albumin/Globulin Ratio 1.1 L (1.2-2.2) Urine Color Yellow (YELLOW) Urine Appearance Slightly cloudy A (CLEAR) Urine pH 5.5 (5.0-8.0) Ur Specific [place] >= 1.030 (1.008-1.030) Urine Protein Negative (NEGATIVE) mg/dL Urine Glucose (UA) Negative (NEGATIVE) mg/dL Urine Ketones Negative (NEGATIVE) mg/dL Urine Occult Blood Negative (NEGATIVE) Urine Nitrite Negative (NEGATIVE) Urine Bilirubin Negative (NEGATIVE) Urine Urobilinogen 0.2 (0.2-1.0) EU/dL Ur Leukocyte Esterase Negative (NEGATIVE) Urine RBC Not seen (0-5) Urine WBC Not seen (0-5) Ur Epithelial Cells Not seen Urine Bacteria Not seen Urine Mucus Few Meds: Medications Discontinued Medications Generic Name Dose Route Start Last Admin Trade Name Freq PRN Reason Stop Dose Admin Sodium Chloride 1,000 mls @ 999 mls/hr 10/05/19 11:15 10/05/19 11:35 Normal Saline IV 999 mls/hr ASDIRECTED MEG Administration Sodium Chloride 1,000 mls @ 500 mls/hr 10/05/19 12:15 Normal Saline IV ASDIRECTED MEG Ondansetron HCl 4 mg 10/05/19 11:09 10/05/19 11:35 Zofran IVPUSH 05/03/20 11:10 4 mg ONETIME ONE Administration - Re-Assessments/Exams Free Text/Narrative Re-Assessment/Exam: 10/05/19 14:07 pt arrived with a near syncopal episode. Feeling very nauseated. 10/05/19 14:51 pt was given 2 liters of fluid. he admitted for the last 2 days because of the angiogram he had very little intake. his specfic gravity was 1.030. He ate luinch and has no further nausea. 10/07/19 07:20 Departure - Departure Time of Disposition: 14:53 Disposition: Home, Self-Care 01 Condition: Fair Clinical Impression: Dehydration, Bradycardia Instructions: Bradycardia, Adult, Dehydration, Adult, [id number] Referrals: PCP,None [Primary Care Provider] - Forms: ED Department Discharge Care Plan Goals: push fluids, continue same meds, keep up with the plans of the pacemaker, rtc if problems. Sepsis Event Note - Evaluation Sepsis Screening Result: No Definite Risk - Focused Exam Date Exam was Performed: 10/07/19 Time Exam was Performed: 07:20
[2019-10-05 14:46] VITALS: BP 116/55; PULSE 47
== END 2019-10-05 15:00 | disposition home or self-care (01) ==
LOC: JP.ED 11:00
DX: E86.0 Dehydration (principal); R00.1 Bradycardia, unspecified; I48.91 Unspecified atrial fibrillation; E78.00 Pure hypercholesterolemia, unspecified; I10 Essential (primary) hypertension; I25.2 Old myocardial infarction; J45.909 Unspecified asthma, uncomplicated; K21.9 Gastro-esophageal reflux disease without esophagitis; F32.9 Major depressive disorder, single episode, unspecified; G62.9 Polyneuropathy, unspecified; Z88.8 Allergy status to other drugs, medicaments and biological substances; Z79.01 Long term (current) use of anticoagulants; Z79.899 Other long term (current) drug therapy
CPT/HCPCS: 36415; 80053; 81001; 85025; 93005; 96361; 96374; 99284; J2405; J7030; 93010

== ENCOUNTER 2019-10-18 20:58 | Emergency (ER) | payer MEDICARE, BC ==
--- NOTE | 2019-10-18 21:47 | EDM.PDOC ---
ED HPI GENERAL MEDICAL PROBLEM - General Chief Complaint: Skin Complaint Stated Complaint: PACEMAKER INFECTION? Time Seen by Provider: 10/18/19 21:39 Source of Information: Reports: Patient, RN Notes Reviewed History Limitations: Reports: No Limitations - History of Present Illness INITIAL COMMENTS - FREE TEXT/NARRATIVE: 79-year-old gentleman presents emergency department a complaint of left arm pain , he does have a known history of coronary artery disease as well as atrial fibrillation that was bradycardic recent pacemaker implantation on Sunday this last week. He states the first 2 days he just had some minor pain over the insertion sites no shortness of breath was doing well and then today he noticed he was short of breath with exertion and the pain started to go down his left arm no diaphoresis no nausea - Related Data Allergies Allergy/AdvReac Type Severity Reaction Status Date / Time procainamide Allergy Other Verified 10/18/19 21:18 ranolazine [From Ranexa] Allergy Other Verified 10/18/19 21:18 rosuvastatin [From Crestor] AdvReac Joint Pain Verified 10/18/19 21:18 simvastatin AdvReac Muscle Verified 10/18/19 21:18 Aches Home Meds: Home Meds Docusate Sodium [Colace] 50 mg PO QID 04/10/15 [History] Isosorbide Mononitrate [Imdur] 120 mg PO QAM 04/10/15 [History] Nitroglycerin [Nitrostat] 0.4 mg SL ASDIRECTED PRN 04/10/15 [History] atorvaSTATin [Lipitor] 80 mg PO DAILY 04/10/15 [History] Citalopram Hydrobromide [Celexa] 20 mg PO DAILY 05/08/17 [History] Multivitamin with Minerals [Multiple Vitamin] 1 tab PO DAILY 05/08/17 [History] QUEtiapine [SEROquel] 25 mg PO BEDTIME 05/08/17 [History] amLODIPine [Norvasc] 10 mg PO DAILY 05/08/17 [History] Warfarin [Coumadin] 7.5 mg PO DAILY 06/15/17 [History] Cyanocobalamin (Vitamin B-12) [B-12] 1 tab PO DAILY 09/28/19 [History] Ezetimibe 10 mg PO DAILY 09/28/19 [History] Finasteride 5 mg PO DAILY 09/28/19 [History] Losartan [Cozaar] 100 mg PO DAILY 09/28/19 [History] Pantoprazole Sodium [Protonix] 40 mg PO DAILY 09/28/19 [History] Past Medical History HEENT History: Reports: Impaired Vision Cardiovascular History: Reports: Afib, Bypass, High Cholesterol, Hypertension, [place], Stents Other Cardiovascular History: recent cardioversion from atrial fib. Pt. started on metoprolol and DCd cozaar and tenormin. Pt. took metoprolol in the evening instead of morning yesterday and thinks this may be the cause of his nausea and abd. pain. Respiratory History: Reports: Asthma Gastrointestinal History: Reports: Colon Polyp, GERD, Other (See Below) Other Gastrointestinal History: pre ulcers Genitourinary History: Reports: Prostate Disorder Musculoskeletal History: Reports: Arthritis, Fracture Neurological History: Reports: Neuropathy, Peripheral Psychiatric History: Reports: Depression Hematologic History: Reports: Blood Transfusion(s), Other (See Below) Other Hematologic History: for open heart surgery Oncologic (Cancer) History: Reports: Other (See Below) Other Oncologic History: possible skin cancer on nose Dermatologic History: Reports: Psoriasis - Infectious Disease History Infectious Disease History: Reports: Influenza, Measles, Mumps - Past Surgical History Cardiovascular Surgical History: Reports: Carotid Endarterectomy, Coronary Artery Bypass, Coronary Artery Stent, Pacer Other Cardiovascular Surgeries/Procedures: carotid surgery left side GI Surgical History: Reports: Colonoscopy, Hernia, Inguinal Other GI Surgeries/Procedures: left ing. hernia Male Surgical History: Reports: TURP-Transurethral Resection of Prostate Other Male Surgeries/Procedures: Musculoskeletal Surgical History: Reports: Other (See Below) Other Musculoskeletal Surgeries/Procedures:: dislocated left shoulder, fx left wrist as child Social & Family History - Family History Family Medical History: Noncontributory - Tobacco Use Smoking Status *Q: Never Smoker - Caffeine Use Caffeine Use: Reports: Coffee ED ROS GENERAL - Review of Systems Review Of Systems: See Below Constitutional: Reports: No Symptoms HEENT: Reports: No Symptoms Respiratory: Reports: Shortness of Breath Cardiovascular: Reports: Chest Pain GI/Abdominal: Reports: No Symptoms Musculoskeletal: Reports: No Symptoms Skin: Reports: Bruising Neurological: Reports: No Symptoms ED EXAM, SKIN/RASH Exam: See Below Exam Limited By: No Limitations General Appearance: Alert, WD/WN, No Apparent Distress Respiratory/Chest: No Respiratory Distress, Lungs Clear, Normal Breath Sounds, No Accessory Muscle Use, Other (Tenderness to palpation over the insertion site of the pacemaker) Cardiovascular: Regular Rate, Rhythm, No Murmur GI/Abdominal: Soft, Non-Tender Course - Vital Signs Last Recorded V/S: Last Vital Signs Temp 97.2 F 10/18/19 21:25 Pulse 53 L 10/18/19 22:08 Resp 14 10/18/19 21:38 BP 127/55 L 10/18/19 22:08 Pulse Ox 95 10/18/19 22:08 - Orders/Labs/Meds Orders: Active Orders 24 hr Category Date Time Status Cardiac Monitoring [RC] .As Directed Care 10/18/19 21:43 Active EKG Documentation Completion [RC] ASDIRECTED Care 10/18/19 21:44 Active Chest 1V Frontal [CR] Stat Exams 10/18/19 21:44 Taken EKG 12 Lead [EK] Stat Ther 10/18/19 21:44 Ordered Labs: Laboratory Tests 10/18/19 10/18/19 10/18/19 Range/Units 21:53 21:53 21:53 WBC 8.0 (4.5-11.0) K/uL RBC 3.88 L (4.30-5.90) M/uL Hgb 12.4 (12.0-15.0) g/dL Hct 38.3 L (40.0-54.0) % MCV 99 H (80-98) fL MCH 32 H (27-31) pg MCHC 32 (32-36) % Plt Count 110 L (150-400) K/uL Neut % (Auto) 54 (36-66) % Lymph % (Auto) 28 (24-44) % [place]les % (Auto) 13 H (2-6) % Eos % (Auto) 4 (2-4) % Baso % (Auto) 1 (0-1) % Sodium 137 L (140-148) mmol/L Potassium 4.1 (3.6-5.2) mmol/L Chloride 102 (100-108) mmol/L Carbon Dioxide 27 (21-32) mmol/L Anion Gap 12.1 (5.0-14.0) mmol/L BUN 22 H (7-18) mg/dL Creatinine 1.2 (0.8-1.3) mg/dL Est Cr Clr Drug Dosing 53.23 mL/min Estimated GFR (MDRD) 59 L (>60) Glucose 109 H (74-106) mg/dL Lactic Acid 0.8 (0.4-2.0) mmol/L Calcium 7.8 L (8.5-10.1) mg/dL Total Bilirubin 0.5 (0.2-1.0) mg/dL AST 26 (15-37) U/L ALT 33 (12-78) U/L Alkaline Phosphatase 60 (46-116) U/L Troponin I < 0.017 (0.000-0.056) ng/mL Total Protein 6.1 L (6.4-8.2) g/dL Albumin 3.0 L (3.4-5.0) g/dL Globulin 3.1 (2.3-3.5) g/dL Albumin/Globulin Ratio 1.0 L (1.2-2.2) Departure - Departure Time of Disposition: 22:35 Disposition: Home, Self-Care 01 Condition: Fair Clinical Impression: Postoperative pain, Pain at surgical site - Discharge Information Referrals: Stefan Mcelroy MD [Primary Care Provider] - Forms: ED Department Discharge Additional Instructions: Continue with your regular pain medications, please contact your surgeon on Sunday for further evaluation call or return to the emergency department worsening of symptoms Sepsis Event Note - Evaluation Sepsis Screening Result: No Definite Risk - Focused Exam Vital Signs: Vital Signs Temp Pulse Resp BP Pulse Ox 10/18/19 22:08 53 L 127/55 L 95 10/18/19 21:38 55 L 14 127/53 L 96 10/18/19 21:25 97.2 F 57 L 16 126/59 L 98 10/18/19 21:14 97.2 F 57 L 16 126/59 L 98 Date Exam was Performed: 10/18/19 Time Exam was Performed: 22:34 - My Orders Last 24 Hours: My Active Orders 10/18/19 21:43 Cardiac Monitoring [RC] .As Directed 10/18/19 21:44 EKG Documentation Completion [RC] ASDIRECTED Chest 1V Frontal [CR] Stat EKG 12 Lead [EK] Stat - Assessment/Plan Last 24 Hours: My Active Orders 10/18/19 21:43 Cardiac Monitoring [RC] .As Directed 10/18/19 21:44 EKG Documentation Completion [RC] ASDIRECTED Chest 1V Frontal [CR] Stat EKG 12 Lead [EK] Stat Plan: Assessment Acuity = acute Site and laterality = postoperative pain Etiology = recent pacemaker implantation Manifestations = none Location of injury = Home Lab values = CBC, CMP, troponin within normal limits chest x-ray I did review films myself I cannot appreciate any acute process, the official read from radiology is pending, EKG demonstrates a sinus rhythm with right bundle branch block no ST elevation or depression Plan Mainly reassurance I have him contact his surgeon on Sunday for further evaluation This note was dictated using [employer] voice recognition software please call with any questions on syntax or grammar.
[2019-10-18 22:16] VITALS: BP 127/55; PULSE 53
--- NOTE | 2019-10-19 11:16 | CRLCR ---
Clinical INDICATION: Chest pain. COMPARISON: 09/28/2019. FINDINGS: Since the previous exam, a pacemaker has been placed upon the left side of the chest with right atrial and right ventricular leads. There has been a sternotomy. There is moderate cardiomegaly. The lungs are clear. The pulmonary vasculature and pleural surfaces appear normal. Impression : Since the prior radiograph, a pacemaker has been placed. Cardiomegaly. Previous sternotomy. Dictated by Diony Decker MD @ Oct 19 2019 11:12AM Signed by Dr. Diony Decker @ Oct 19 2019 11:15AM
== END 2019-10-18 22:52 | disposition home or self-care (01) ==
LOC: JP.ED 20:58
DX: G89.18 Other acute postprocedural pain (principal); M79.602 Pain in left arm; I48.91 Unspecified atrial fibrillation; E78.00 Pure hypercholesterolemia, unspecified; I10 Essential (primary) hypertension; I25.2 Old myocardial infarction; Z95.5 Presence of coronary angioplasty implant and graft; J45.909 Unspecified asthma, uncomplicated; K21.9 Gastro-esophageal reflux disease without esophagitis; F32.9 Major depressive disorder, single episode, unspecified; Z88.8 Allergy status to other drugs, medicaments and biological substances; Z79.899 Other long term (current) drug therapy; Z79.01 Long term (current) use of anticoagulants
CPT/HCPCS: 36415; 71045; 80053; 83605; 84484; 85025; 93005; 93010; 99282; 99285-25

== ENCOUNTER 2019-11-15 20:38 | Emergency (ER) | payer MEDICARE, BC ==
[2019-11-15] MEDS ORDERED: Aspirin 81 MG Tab.Chew PO ONE (20:51)
[2019-11-15] MEDS ORDERED: Sodium Chloride 0.9% 10 ML Syringe FLUSH PRN (20:51)
--- NOTE | 2019-11-15 20:56 | EDM.PDOC ---
ED HPI GENERAL MEDICAL PROBLEM - General Chief Complaint: Chest Pain Stated Complaint: LEFT ARM AND NECK PAIN Time Seen by Provider: 11/15/19 20:45 Source of Information: Reports: Patient, RN Notes Reviewed History Limitations: Reports: No Limitations - History of Present Illness INITIAL COMMENTS - FREE TEXT/NARRATIVE: 79-year-old gentleman presents emergency department a complaint of chest pain with radiations up into the jaw and down to the left arm, he states is not more than short of breath than usual no nausea or vomiting no diaphoresis, does have an extensive cardiac history to "stents. Recently had pacemaker implantation for unresponsive bradycardia secondary to medication. He is about 10 days out from pacemaker implantation. Today was the first day he could return to regular duty he does admit that he was working around his house moving furniture vacuuming more strenuous work than usual which caused the chest pain to come on. The chest pain is intermittent initially when the pain was at its most severe was 10 out of 10 however now he is chest pain-free rates it 0 out of 10 left side of neck Pain Score (Numeric/FACES): 10 - Related Data Allergies Allergy/AdvReac Type Severity Reaction Status Date / Time procainamide Allergy Other Verified 11/15/19 21:40 ranolazine [From Ranexa] Allergy Other Verified 11/15/19 21:40 rosuvastatin [From Crestor] AdvReac Joint Pain Verified 11/15/19 21:40 simvastatin AdvReac Muscle Verified 11/15/19 21:40 Aches Home Meds: Home Meds Docusate Sodium [Colace] 50 mg PO QID 04/10/15 [History] Isosorbide Mononitrate [Imdur] 120 mg PO QAM 04/10/15 [History] Nitroglycerin [Nitrostat] 0.4 mg SL ASDIRECTED PRN 04/10/15 [History] atorvaSTATin [Lipitor] 80 mg PO DAILY 04/10/15 [History] Citalopram Hydrobromide [Celexa] 20 mg PO DAILY 05/08/17 [History] Multivitamin with Minerals [Multiple Vitamin] 1 tab PO DAILY 05/08/17 [History] QUEtiapine [SEROquel] 25 mg PO BEDTIME 05/08/17 [History] amLODIPine [Norvasc] 10 mg PO DAILY 05/08/17 [History] Cyanocobalamin (Vitamin B-12) [B-12] 1 tab PO DAILY 09/28/19 [History] Ezetimibe 10 mg PO DAILY 09/28/19 [History] Losartan [Cozaar] 100 mg PO DAILY 09/28/19 [History] Pantoprazole Sodium [Protonix] 40 mg PO DAILY 09/28/19 [History] Warfarin [Coumadin] 0.5 tab PO DAILY 11/15/19 [History] Past Medical History HEENT History: Reports: Impaired Vision Cardiovascular History: Reports: Afib, Bypass, CAD, High Cholesterol, Hypertension, [place], Stents Other Cardiovascular History: recent cardioversion from atrial fib. Pt. started on metoprolol and DCd cozaar and tenormin. Pt. took metoprolol in the evening instead of morning yesterday and thinks this may be the cause of his nausea and abd. pain. Respiratory History: Reports: Asthma Gastrointestinal History: Reports: Colon Polyp, GERD, Other (See Below) Other Gastrointestinal History: pre ulcers Genitourinary History: Reports: Prostate Disorder Musculoskeletal History: Reports: Arthritis, Fracture Neurological History: Reports: Neuropathy, Peripheral Psychiatric History: Reports: Depression Hematologic History: Reports: Blood Transfusion(s), Other (See Below) Other Hematologic History: for open heart surgery Oncologic (Cancer) History: Reports: Other (See Below) Other Oncologic History: possible skin cancer on nose Dermatologic History: Reports: Psoriasis - Infectious Disease History Infectious Disease History: Reports: Influenza, Measles, Mumps - Past Surgical History Cardiovascular Surgical History: Reports: Carotid Endarterectomy, Coronary Artery Bypass, Coronary Artery Stent, Pacer Other Cardiovascular Surgeries/Procedures: carotid surgery left side GI Surgical History: Reports: Colonoscopy, Hernia, Inguinal Other GI Surgeries/Procedures: left ing. hernia Male Surgical History: Reports: TURP-Transurethral Resection of Prostate Other Male Surgeries/Procedures: Musculoskeletal Surgical History: Reports: Other (See Below) Other Musculoskeletal Surgeries/Procedures:: dislocated left shoulder, fx left wrist as child Social & Family History - Family History Family Medical History: Noncontributory - Caffeine Use Caffeine Use: Reports: Coffee ED ROS GENERAL - Review of Systems Review Of Systems: See Below Constitutional: Reports: No Symptoms HEENT: Reports: No Symptoms Respiratory: Reports: No Symptoms Cardiovascular: Reports: Chest Pain GI/Abdominal: Reports: No Symptoms : Reports: No Symptoms Musculoskeletal: Reports: Arm Pain ED EXAM, GENERAL - Physical Exam Exam: See Below Exam Limited By: No Limitations General Appearance: Alert, WD/WN, No Apparent Distress Neck: Normal Inspection, Supple, Non-Tender, Full Range of Motion Respiratory/Chest: No Respiratory Distress, Lungs Clear, Normal Breath Sounds, No Accessory Muscle Use, Chest Non-Tender Cardiovascular: Regular Rate, Rhythm, No Murmur GI/Abdominal: Soft, Non-Tender Extremities: No Pedal Edema Course - Vital Signs Last Recorded V/S: Last Vital Signs Temp 96.7 F L 11/15/19 20:53 Pulse 53 L 11/15/19 21:12 Resp 19 11/15/19 21:12 BP 130/74 11/15/19 21:12 Pulse Ox 97 11/15/19 21:12 - Orders/Labs/Meds Orders: Active Orders 24 hr Category Date Time Status Cardiac Monitoring [RC] .As Directed Care 11/15/19 20:52 Active EKG Documentation Completion [RC] ASDIRECTED Care 11/15/19 20:52 Active Peripheral IV Care [RC] . DIRECTED Care 11/15/19 20:52 Active Chest 1V Frontal [CR] Stat Exams 11/15/19 20:52 Taken Sodium Chloride 0.9% [Saline Flush] Med 11/15/19 20:51 Active 10 ml FLUSH ASDIRECTED PRN Peripheral IV Insertion Adult [OM.PC] Stat Oth 11/15/19 20:51 Ordered Saline Lock Insert [OM.PC] Stat Oth 11/15/19 20:51 Ordered EKG 12 Lead [EK] Stat Ther 11/15/19 20:52 Ordered Medication Orders Sodium Chloride (Saline Flush) 10 ml FLUSH ASDIRECTED PRN PRN Reason: Keep Vein Open Last Admin: 11/15/19 20:59 Dose: 10 ml Labs: Laboratory Tests 11/15/19 11/15/19 11/15/19 Range/Units 20:51 21:06 21:06 WBC 6.8 (4.5-11.0) K/uL RBC 3.96 L (4.30-5.90) M/uL Hgb 12.8 (12.0-15.0) g/dL Hct 39.0 L (40.0-54.0) % MCV 99 H (80-98) fL MCH 32 H (27-31) pg MCHC 33 (32-36) % Plt Count 124 L (150-400) K/uL Neut % (Auto) 39 (36-66) % Lymph % (Auto) 41 (24-44) % [place] % (Auto) 14 H (2-6) % Eos % (Auto) 6 H (2-4) % Baso % (Auto) 1 (0-1) % PT 27.4 H (9.5-12.0) sec INR 2.68 H (0.80-1.20) Sodium 138 L (140-148) mmol/L Potassium 4.1 (3.6-5.2) mmol/L Chloride 102 (100-108) mmol/L Carbon Dioxide 29 (21-32) mmol/L Anion Gap 11.1 (5.0-14.0) mmol/L BUN 20 H (7-18) mg/dL Creatinine 1.3 (0.8-1.3) mg/dL Est Cr Clr Drug Dosing 49.13 mL/min Estimated GFR (MDRD) 54 L (>60) Glucose 103 (74-106) mg/dL Calcium 8.4 L (8.5-10.1) mg/dL Total Bilirubin 0.6 (0.2-1.0) mg/dL AST 33 (15-37) U/L ALT 41 (12-78) U/L Alkaline Phosphatase 56 (46-116) U/L Troponin I < 0.017 (0.000-0.056) ng/mL Total Protein 6.8 (6.4-8.2) g/dL Albumin 3.6 (3.4-5.0) g/dL Globulin 3.2 (2.3-3.5) g/dL Albumin/Globulin Ratio 1.1 L (1.2-2.2) Meds: Medications Generic Name Dose Route Start Last Admin Trade Name Freq PRN Reason Stop Dose Admin Sodium Chloride 10 ml 11/15/19 20:51 11/15/19 20:59 Saline Flush FLUSH 10 ml ASDIRECTED PRN Administration Keep Vein Open Discontinued Medications Generic Name Dose Route Start Last Admin Trade Name Freq PRN Reason Stop Dose Admin Aspirin 324 mg 11/15/19 20:51 11/15/19 20:58 Aspirin PO 11/15/19 20:52 324 mg ONETIME ONE Administration Departure - Departure Time of Disposition: 21:51 Disposition: DC/Tfer to Acute Hospital 02 Reason for Transfer *Q: Other Condition: Fair Clinical Impression: Unstable angina, Acute coronary syndrome Referrals: PCP,None [Primary Care Provider] - Forms: ED Department Discharge Sepsis Event Note (ED) - Evaluation Sepsis Screening Result: No Definite Risk - Focused Exam Vital Signs: Vital Signs Temp Pulse Resp BP Pulse Ox 11/15/19 21:12 53 L 19 130/74 97 11/15/19 20:53 96.7 F L 58 L 18 145/71 H 98 11/15/19 20:46 96.7 F L 58 L 18 145/71 H 98 - My Orders Last 24 Hours: My Active Orders 11/15/19 20:51 Sodium Chloride 0.9% [Saline Flush] 10 ml FLUSH ASDIRECTED PRN Peripheral IV Insertion Adult [OM.PC] Stat Saline Lock Insert [OM.PC] Stat 11/15/19 20:52 Cardiac Monitoring [RC] .As Directed EKG Documentation Completion [RC] ASDIRECTED Peripheral IV Care [RC] . DIRECTED Chest 1V Frontal [CR] Stat EKG 12 Lead [EK] Stat - Assessment/Plan Last 24 Hours: My Active Orders 11/15/19 20:51 Sodium Chloride 0.9% [Saline Flush] 10 ml FLUSH ASDIRECTED PRN Peripheral IV Insertion Adult [OM.PC] Stat Saline Lock Insert [OM.PC] Stat 11/15/19 20:52 Cardiac Monitoring [RC] .As Directed EKG Documentation Completion [RC] ASDIRECTED Peripheral IV Care [RC] . DIRECTED Chest 1V Frontal [CR] Stat EKG 12 Lead [EK] Stat Plan: Assessment Acuity = acute Site and laterality = unstable angina Etiology = suspicious for underlying coronary artery disease Manifestations = none Location of injury = Home Lab values = CBC unremarkable CMP unremarkable INR therapeutic 2.6H initial troponin was negative chest x-ray shows no acute process official read radiologist pending EKG demonstrates a sinus rhythm first-degree block there is no ST elevations or depressions there is a right bundle branch block Plan Call discussed case with Dr. Whitehead emergency room physician at [facility] at [id number] he kindly accepted the patient in transport will be transported via EMS ground he has remained chest pain-free in the emergency department has only received aspirin no other interventions done,, heart score is 5 This note was dictated using [employer] voice recognition software please call with any questions on syntax or grammar.
[2019-11-15 22:05] VITALS: PULSE 52
[2019-11-15 22:17] VITALS: BP 137/77
--- NOTE | 2019-11-17 09:43 | CR ---
CHEST: Portable 11/15/2019 at 9:07 PM CLINICAL HISTORY:Chest pain COMPARISON:10/18/2019 FINDINGS: Patient has had previous sternotomy. Heart is borderline enlarged. Pulmonary vascularity is normal.. Lungs are clear. Patient is a permanent cardiac pacer Impression: No acute cardiopulmonary process Previous coronary artery bypass Permanent cardiac pacer
== END 2019-11-15 22:39 ==
LOC: JP.ED 20:38
DX: I25.110 Atherosclerotic heart disease of native coronary artery with unstable angina pectoris (principal); I10 Essential (primary) hypertension; I48.91 Unspecified atrial fibrillation; E78.00 Pure hypercholesterolemia, unspecified; K21.9 Gastro-esophageal reflux disease without esophagitis; M19.90 Unspecified osteoarthritis, unspecified site; F32.9 Major depressive disorder, single episode, unspecified; I25.2 Old myocardial infarction; Z95.5 Presence of coronary angioplasty implant and graft; Z88.8 Allergy status to other drugs, medicaments and biological substances; Z79.899 Other long term (current) drug therapy; Z79.01 Long term (current) use of anticoagulants
CPT/HCPCS: 36415; 71045; 80053; 84484; 85025; 85610; 93005; 99285; A9270; 93010

== ENCOUNTER 2020-08-15 10:58 | Emergency (ER) | payer MEDICARE, BC ==
[2020-08-15 11:28] VITALS: BP 149/74; PULSE 81
--- NOTE | 2020-08-15 12:03 | EDM.PDOC ---
ED HPI GENERAL MEDICAL PROBLEM - General Chief Complaint: Chest Pain Stated Complaint: ANGIOGRAM DONE 08/13, CHEST PAIN TODAY Time Seen by Provider: 08/15/20 11:40 Source of Information: Reports: Patient History Limitations: Reports: No Limitations - History of Present Illness INITIAL COMMENTS - FREE TEXT/NARRATIVE: 80-year-old male with intermittent sharp cramping-like pain just above the right breast and a very small area anteriorly. He had an angiogram 2 days ago, they had some difficulty with venous access and he is concerned that this pain may be related to the procedure. It is an intermittent pain that lasts 5 to 10 seconds, then goes away gradually. It feels better if he pushes on it. No shortness of breath diaphoresis or other symptoms. When I was talking to him, he had no pain. It seems to come and go about every 20 minutes. Onset: Gradual (Over the past 6 hours) - Related Data Allergies Allergy/AdvReac Type Severity Reaction Status Date / Time procainamide Allergy Other Verified 08/15/20 11:19 ranolazine [From Ranexa] Allergy Other Verified 08/15/20 11:19 rosuvastatin [From Crestor] AdvReac Joint Pain Verified 08/15/20 11:19 simvastatin AdvReac Muscle Verified 08/15/20 11:19 Aches Home Meds: Home Meds Docusate Sodium [Colace] 50 mg PO QID 04/10/15 [History] Isosorbide Mononitrate [Imdur] 120 mg PO QAM 04/10/15 [History] Nitroglycerin [Nitrostat] 0.4 mg SL ASDIRECTED PRN 04/10/15 [History] atorvaSTATin [Lipitor] 80 mg PO DAILY 04/10/15 [History] Citalopram Hydrobromide [Celexa] 20 mg PO DAILY 05/08/17 [History] Multivitamin with Minerals [Multiple Vitamin] 1 tab PO DAILY 05/08/17 [History] QUEtiapine [SEROquel] 0 mg PO BEDTIME 05/08/17 [History] amLODIPine [Norvasc] 10 mg PO DAILY 05/08/17 [History] Cyanocobalamin (Vitamin B-12) [B-12] 1 tab PO DAILY 09/28/19 [History] Ezetimibe 10 mg PO DAILY 09/28/19 [History] Losartan [Cozaar] 100 mg PO DAILY 09/28/19 [History] Pantoprazole Sodium [Protonix] 40 mg PO DAILY 09/28/19 [History] Warfarin [Coumadin] 0.5 tab PO DAILY 11/15/19 [History] Metoprolol Succinate 1 tab PO DAILY 08/15/20 [History] Past Medical History HEENT History: Reports: Impaired Vision Cardiovascular History: Reports: Afib, Bypass, CAD, High Cholesterol, Hypertension, [place], Stents Other Cardiovascular History: recent cardioversion from atrial fib. Pt. started on metoprolol and DCd cozaar and tenormin. Pt. took metoprolol in the evening instead of morning yesterday and thinks this may be the cause of his nausea and abd. pain. Respiratory History: Reports: Asthma Gastrointestinal History: Reports: Colon Polyp, GERD, Other (See Below) Other Gastrointestinal History: pre ulcers Genitourinary History: Reports: Prostate Disorder Musculoskeletal History: Reports: Arthritis, Fracture Neurological History: Reports: Neuropathy, Peripheral Psychiatric History: Reports: Depression Hematologic History: Reports: Blood Transfusion(s), Other (See Below) Other Hematologic History: for open heart surgery Oncologic (Cancer) History: Reports: Other (See Below) Other Oncologic History: possible skin cancer on nose Dermatologic History: Reports: Psoriasis - Infectious Disease History Infectious Disease History: Reports: Influenza, Measles, Mumps - Past Surgical History HEENT Surgical History: Reports: None Cardiovascular Surgical History: Reports: Carotid Endarterectomy, Coronary Artery Bypass, Coronary Artery Stent, Pacer, Vascular Surgery Other Cardiovascular Surgeries/Procedures: carotid surgery left side Respiratory Surgical History: Reports: None GI Surgical History: Reports: Colonoscopy, Hernia, Inguinal Other GI Surgeries/Procedures: left ing. hernia Male Surgical History: Reports: TURP-Transurethral Resection of Prostate Other Male Surgeries/Procedures: Musculoskeletal Surgical History: Reports: Other (See Below) Other Musculoskeletal Surgeries/Procedures:: dislocated left shoulder, fx left wrist as child Oncologic Surgical History: Reports: None Social & Family History - Family History Family Medical History: No Pertinent Family History - Tobacco Use Tobacco Use Status *Q: Never Tobacco User - Caffeine Use Caffeine Use: Reports: Coffee ED ROS GENERAL - Review of Systems Review Of Systems: See Below Constitutional: Denies: Fever, Chills HEENT: Reports: No Symptoms Respiratory: Denies: Shortness of Breath Cardiovascular: Denies: Palpitations GI/Abdominal: Reports: No Symptoms Skin: Reports: Other (Significant bruising is developed in the right antecubital area from his recent procedure) Neurological: Reports: No Symptoms ED EXAM, GENERAL - Physical Exam Exam: See Below Exam Limited By: No Limitations General Appearance: Alert, No Apparent Distress Head: Atraumatic Neck: Other (There is a small gauze on the right supraclavicular area from his recent procedure, no significant bruising or asymmetry) Respiratory/Chest: No Respiratory Distress, Lungs Clear, Other (I cannot reproduce pain with palpation of the chest wall) Cardiovascular: Regular Rate, Rhythm, No Murmur GI/Abdominal: Soft, Non-Tender Extremities: Normal Inspection. No: Pedal Edema Neurological: Alert, Oriented Psychiatric: Normal Affect, Normal Mood Skin Exam: Warm, Dry Course - Vital Signs Last Recorded V/S: Last Vital Signs Temp 97.1 F 08/15/20 11:29 Pulse 81 08/15/20 11:29 Resp 16 08/15/20 11:29 BP 149/74 H 08/15/20 11:29 Pulse Ox 99 08/15/20 11:29 - Re-Assessments/Exams Free Text/Narrative Re-Assessment/Exam: 08/15/20 12:33 Reassured the patient that this is not the type of pain that would indicate a heart source. This is localized chest wall discomfort, likely an intercostal muscle irritability. He will recheck if worsening. Departure - Departure Time of Disposition: 12:18 Disposition: Home, Self-Care 01 Clinical Impression: Chest wall pain - Discharge Information Instructions: Chest Wall Pain, [id number] Referrals: Stefan Mcelroy MD [Primary Care Provider] - Forms: ED Department Discharge Care Plan Goals: Heating pad to the area may be helpful along with some Tylenol. Recheck in 2 to 3 days if not improving satisfactorily, or return sooner if worsening such as persistent pain for 20 minutes or more along with shortness of breath or sweating. Sepsis Event Note (ED) - Evaluation Sepsis Screening Result: No Definite Risk - Focused Exam Vital Signs: Vital Signs Temp Pulse Resp BP Pulse Ox 08/15/20 11:29 97.1 F 81 16 149/74 H 99 08/15/20 11:14 97.1 F 81 16 149/74 H 99
== END 2020-08-15 12:19 | disposition home or self-care (01) ==
LOC: JP.ED 10:58
DX: R07.89 Other chest pain (principal); I48.91 Unspecified atrial fibrillation; I25.10 Atherosclerotic heart disease of native coronary artery without angina pectoris; E78.00 Pure hypercholesterolemia, unspecified; I10 Essential (primary) hypertension; I25.2 Old myocardial infarction; J45.909 Unspecified asthma, uncomplicated; K21.9 Gastro-esophageal reflux disease without esophagitis; G62.9 Polyneuropathy, unspecified; Z79.899 Other long term (current) drug therapy; Z79.01 Long term (current) use of anticoagulants; Z88.8 Allergy status to other drugs, medicaments and biological substances; Z95.5 Presence of coronary angioplasty implant and graft
CPT/HCPCS: 99283; 99284

== ENCOUNTER 2020-12-31 19:55 | Emergency (ER) | payer MEDICARE, BC ==
[2020-12-31] MEDS ORDERED: Sodium Chloride 0.9% 10 ML Syringe FLUSH PRN (20:47)
--- NOTE | 2020-12-31 20:49 | EDM.PDOC ---
ED HPI GENERAL MEDICAL PROBLEM - General Chief Complaint: Cardiovascular Problem Stated Complaint: FAST HEART RATE Time Seen by Provider: 12/31/20 20:48 Source of Information: Reports: Patient, RN - History of Present Illness INITIAL COMMENTS - FREE TEXT/NARRATIVE: William is a 80 brandy old male whom presents to ER with chest palpations with history of a flutter on Coumadin. William is concerned about recurrent a fib which required cardioversion in the past. William reports lying in bed this evening watching TV at 8 pm with abrupt onset of irregular heart beat which was initially fast but has slowed. William thought HR was in the 100s. William ahs a pacemaker due to typical abnormally lower HR. William is on chronic anticoagulant, Coumadin, due to recurrent a fib a flutter. William has had 2 open heart surgeries and over 8 cardiac stents at the [facility]. William reported a brief episode of sharp anterior chest pain which only lasted a few seconds to minutes and resolved. William is otherwise feeling fine without concern or symptoms of other illness. - Related Data Allergies Allergy/AdvReac Type Severity Reaction Status Date / Time procainamide Allergy Other Verified 08/15/20 11:19 ranolazine [From Ranexa] Allergy Other Verified 08/15/20 11:19 rosuvastatin [From Crestor] AdvReac Joint Pain Verified 08/15/20 11:19 simvastatin AdvReac Muscle Verified 08/15/20 11:19 Aches Home Meds: Home Meds Docusate Sodium [Colace] 50 mg PO QID 04/10/15 [History] Isosorbide Mononitrate [Imdur] 120 mg PO QAM 04/10/15 [History] Nitroglycerin [Nitrostat] 0.4 mg SL ASDIRECTED PRN 04/10/15 [History] atorvaSTATin [Lipitor] 80 mg PO DAILY 04/10/15 [History] Citalopram Hydrobromide [Celexa] 20 mg PO DAILY 05/08/17 [History] Multivitamin with Minerals [Multiple Vitamin] 1 tab PO DAILY 05/08/17 [History] QUEtiapine [SEROquel] 50 mg PO BEDTIME 05/08/17 [History] amLODIPine [Norvasc] 10 mg PO DAILY 05/08/17 [History] Cyanocobalamin (Vitamin B-12) [B-12] 1 tab PO DAILY 09/28/19 [History] Ezetimibe 10 mg PO DAILY 09/28/19 [History] Losartan [Cozaar] 50 mg PO BID 09/28/19 [History] Pantoprazole Sodium [Protonix] 40 mg PO DAILY 09/28/19 [History] Warfarin [Coumadin] 0.5 tab PO DAILY 11/15/19 [History] Metoprolol Succinate 50 tab PO BID 08/15/20 [History] Past Medical History HEENT History: Reports: Impaired Vision Cardiovascular History: Reports: Afib, Bypass, CAD, High Cholesterol, Hypertension, [place], Stents Other Cardiovascular History: recent cardioversion from atrial fib. Pt. started on metoprolol and DCd cozaar and tenormin. Pt. took metoprolol in the evening instead of morning yesterday and thinks this may be the cause of his nausea and abd. pain. Respiratory History: Reports: Asthma Gastrointestinal History: Reports: Colon Polyp, GERD, Other (See Below) Other Gastrointestinal History: pre ulcers Genitourinary History: Reports: Prostate Disorder Musculoskeletal History: Reports: Arthritis, Fracture Neurological History: Reports: Neuropathy, Peripheral Psychiatric History: Reports: Depression Hematologic History: Reports: Blood Transfusion(s), Other (See Below) Other Hematologic History: for open heart surgery Oncologic (Cancer) History: Reports: Other (See Below) Other Oncologic History: possible skin cancer on nose Dermatologic History: Reports: Psoriasis - Infectious Disease History Infectious Disease History: Reports: Influenza, Measles, Mumps, Shingles - Past Surgical History HEENT Surgical History: Reports: None Cardiovascular Surgical History: Reports: Carotid Endarterectomy, Coronary Artery Bypass, Coronary Artery Stent, Pacer, Vascular Surgery Other Cardiovascular Surgeries/Procedures: carotid surgery left side Respiratory Surgical History: Reports: None GI Surgical History: Reports: Colonoscopy, Hernia, Inguinal Other GI Surgeries/Procedures: left ing. hernia Male Surgical History: Reports: TURP-Transurethral Resection of Prostate Other Male Surgeries/Procedures: Musculoskeletal Surgical History: Reports: Other (See Below) Other Musculoskeletal Surgeries/Procedures:: dislocated left shoulder, fx left wrist as child Oncologic Surgical History: Reports: None Social & Family History - Family History Family Medical History: No Pertinent Family History - Tobacco Use Tobacco Use Status *Q: Never Tobacco User Second Hand Smoke Exposure: No - Caffeine Use Caffeine Use: Reports: None - Recreational Drug Use Recreational Drug Use: No ED ROS GENERAL - Review of Systems Review Of Systems: Comprehensive ROS is negative, except as noted in HPI. ED EXAM, GENERAL - Physical Exam Exam: See Below General Appearance: Alert, WD/WN, Mild Distress (due palpitation and return of a flutter/fib) Eye Exam: Bilateral Eye: Normal Inspection Ears: Normal External Exam, Hearing Grossly Normal Nose: Normal Inspection, Normal Mucosa Throat/Mouth: Normal Inspection, Normal Lips Head: Atraumatic, Normocephalic Neck: Normal Inspection, Full Range of Motion Respiratory/Chest: No Respiratory Distress, Lungs Clear, Normal Breath Sounds, Other (anterior chest sternal scarring noted and left anterior chest pacemaker) Cardiovascular: Normal Peripheral Pulses, Bradycardia, Irregularly Irregular GI/Abdominal: Normal Bowel Sounds, Soft, Non-Tender Extremities: Normal Inspection Neurological: Alert, Oriented, CN II-XII Intact, Normal Cognition, Normal Gait Psychiatric: Normal Affect, Normal Mood Skin Exam: Warm, Dry, Intact, Normal Color, No Rash #1 Interpretation EKG Date: 12/31/20 Time: 21:04 Rhythm: A-Flutter Rate (Beats/Min): 57 [place]: Normal P-Wave: Variable QRS: Wide (RBBB and LBBB noted.) ST-T: Normal QT: Normal MN/PQ Interval: Improved from previous EKG Comparison: Change From Previous EKG (From NSR to a flutter with known history) Course - Vital Signs Last Recorded V/S: Last Vital Signs Temp 35.9 C L 12/31/20 20:17 Pulse 70 12/31/20 20:17 Resp 19 12/31/20 20:17 BP 137/63 12/31/20 20:17 Pulse Ox 97 12/31/20 20:17 - Orders/Labs/Meds Orders: Active Orders 24 hr Category Date Time Status Cardiac Monitoring [RC] .As Directed Care 12/31/20 20:48 Active EKG Documentation Completion [RC] ASDIRECTED Care 12/31/20 20:35 Active EKG Documentation Completion [RC] ASDIRECTED Care 12/31/20 20:35 Active Peripheral IV Care [RC] . DIRECTED Care 12/31/20 20:48 Active Sodium Chloride 0.9% [Saline Flush] Med 12/31/20 20:47 Active 10 ml FLUSH ASDIRECTED PRN Peripheral IV Insertion Adult [OM.PC] Urgent Oth 12/31/20 20:47 Ordered EKG 12 Lead [EK] Urgent Ther 12/31/20 20:35 Ordered Medication Orders Sodium Chloride (Sodium Chloride 0.9% 10 Ml Syringe) 10 ml FLUSH ASDIRECTED PRN PRN Reason: Keep Vein Open Last Admin: 12/31/20 21:33 Dose: 10 ml Documented by: DINO Labs: Laboratory Tests 12/31/20 12/31/20 12/31/20 Range/Units 21:03 21:03 21:03 WBC 7.0 (4.5-11.0) K/uL RBC 3.91 L (4.30-5.90) M/uL Hgb 12.6 (12.0-15.0) g/dL Hct 38.1 L (40.0-54.0) % MCV 97 (80-98) fL MCH 32 H (27-31) pg MCHC 33 (32-36) % Plt Count 126 L (150-400) K/uL Neut % (Auto) 45.9 (36-66) % Lymph % (Auto) 35.8 (24-44) % [place] % (Auto) 13.8 H (2-6) % Eos % (Auto) 4.1 H (2-4) % Baso % (Auto) 0.4 (0-1) % PT 24.3 H (9.5-12.0) sec INR 2.27 H (0.80-1.20) Sodium (140-148) mmol/L Potassium (3.6-5.2) mmol/L Chloride (100-108) mmol/L Carbon Dioxide (21-32) mmol/L Anion Gap (5.0-14.0) mmol/L BUN (7-18) mg/dL Creatinine (0.8-1.3) mg/dL Est Cr Clr Drug Dosing mL/min Estimated GFR (MDRD) (>60) Glucose (74-106) mg/dL Calcium (8.5-10.1) mg/dL Total Bilirubin (0.2-1.0) mg/dL AST (15-37) U/L ALT (12-78) U/L Alkaline Phosphatase (46-116) U/L Troponin I < 0.017 (0.000-0.056) ng/mL Total Protein (6.4-8.2) g/dL Albumin (3.4-5.0) g/dL Globulin (2.3-3.5) g/dL Albumin/Globulin Ratio (1.2-2.2) 07/30/ Range/Units 21:03 WBC (4.5-11.0) K/uL RBC (4.30-5.90) M/uL Hgb (12.0-15.0) g/dL Hct (40.0-54.0) % MCV (80-98) fL MCH (27-31) pg MCHC (32-36) % Plt Count (150-400) K/uL Neut % (Auto) (36-66) % Lymph % (Auto) (24-44) % [place] % (Auto) (2-6) % Eos % (Auto) (2-4) % Baso % (Auto) (0-1) % PT (9.5-12.0) sec INR (0.80-1.20) Sodium 140 (140-148) mmol/L Potassium 4.0 (3.6-5.2) mmol/L Chloride 104 (100-108) mmol/L Carbon Dioxide 28 (21-32) mmol/L Anion Gap 7.7 (5.0-14.0) mmol/L BUN 20 H (7-18) mg/dL Creatinine 1.3 (0.8-1.3) mg/dL Est Cr Clr Drug Dosing 48.35 mL/min Estimated GFR (MDRD) 53 L (>60) Glucose 104 (74-106) mg/dL Calcium 8.3 L (8.5-10.1) mg/dL Total Bilirubin 0.8 (0.2-1.0) mg/dL AST 31 (15-37) U/L ALT 30 (12-78) U/L Alkaline Phosphatase 50 (46-116) U/L Troponin I (0.000-0.056) ng/mL Total Protein 6.3 L (6.4-8.2) g/dL Albumin 3.3 L (3.4-5.0) g/dL Globulin 3.0 (2.3-3.5) g/dL Albumin/Globulin Ratio 1.1 L (1.2-2.2) Meds: Medications Generic Name Dose Route Start Last Admin Trade Name Freq PRN Reason Stop Dose Admin Sodium Chloride 10 ml 12/31/20 20:47 12/31/20 21:33 Sodium Chloride 0.9% 10 Ml Syringe FLUSH 10 ml ASDIRECTED PRN Administration Keep Vein Open - Re-Assessments/Exams Free Text/Narrative Re-Assessment/Exam: Discussed results with patient including a fib with lower normal heart rate without acute concerning symptoms may not require cardioversion in the future. William would like to proceed without needing cardioversion but needs to be discussed with PCP and Site Leasing Agent. 12/31/20 22:25 Departure - Departure Time of Disposition: 22:27 Disposition: Home, Self-Care 01 Clinical Impression: Atrial flutter by electrocardiogram, Palpitation Instructions: Atrial Flutter, Palpitations Referrals: Stefan Mcelroy MD [Primary Care Provider] - Forms: ED Department Discharge Additional Instructions: 1. Continue current medications. 2. Contact clinic provider on Sunday for recheck heart rhythm with stable Coumadin and heart rate normal control. 3. You may not need cardioversion but calling Site Leasing Agent at [facility] may be beneficial with discussion. 4. Return to ER if new worsening symptoms or concerns. Sepsis Event Note (ED) - Focused Exam Vital Signs: Vital Signs Temp Pulse Resp BP Pulse Ox 12/31/20 20:17 35.9 C L 70 19 137/63 97 - My Orders Last 24 Hours: My Active Orders 12/31/20 20:35 EKG Documentation Completion [RC] ASDIRECTED EKG Documentation Completion [RC] ASDIRECTED EKG 12 Lead [EK] Urgent 12/31/20 20:47 Sodium Chloride 0.9% [Saline Flush] 10 ml FLUSH ASDIRECTED PRN Peripheral IV Insertion Adult [OM.PC] Urgent 12/31/20 20:48 Cardiac Monitoring [RC] .As Directed Peripheral IV Care [RC] . DIRECTED - Assessment/Plan Last 24 Hours: My Active Orders 12/31/20 20:35 EKG Documentation Completion [RC] ASDIRECTED EKG Documentation Completion [RC] ASDIRECTED EKG 12 Lead [EK] Urgent 12/31/20 20:47 Sodium Chloride 0.9% [Saline Flush] 10 ml FLUSH ASDIRECTED PRN Peripheral IV Insertion Adult [OM.PC] Urgent 12/31/20 20:48 Cardiac Monitoring [RC] .As Directed Peripheral IV Care [RC] . DIRECTED
--- NOTE | 2020-12-31 21:50 | CRLCR ---
For Patients: As a result of the Cures Act, medical imaging exams and procedure reports are released immediately into your electronic medical record. You may view this report before your referring provider. If you have questions, please contact your health care provider. INDICATION: Palpitations. TECHNIQUE: Chest 2 view(s) COMPARISON: Chest radiograph dated 11/15/2019. FINDINGS: Postsurgical changes of prior open heart surgery. Cardiac pacemaker device in the left chest wall. Stable cardiomediastinal silhouette and pulmonary vasculature. No focal consolidation. No pleural effusion, no definite pneumothorax. Multilevel degenerative changes of the thoracic spine. IMPRESSION: No acute cardiopulmonary process. Dictated by Brandi Linda MD @ 12/31/2020 9:48:[address] Brandi Linda @ Dec 31 2020 9:48PM
[2020-12-31 22:39] VITALS: BP 118/57; PULSE 57
== END 2020-12-31 22:27 | disposition home or self-care (01) ==
LOC: JP.ED 19:55
DX: I48.92 Unspecified atrial flutter (principal); R00.2 Palpitations; I48.91 Unspecified atrial fibrillation; I25.10 Atherosclerotic heart disease of native coronary artery without angina pectoris; E78.00 Pure hypercholesterolemia, unspecified; I10 Essential (primary) hypertension; I25.2 Old myocardial infarction; Z95.1 Presence of aortocoronary bypass graft; Z79.899 Other long term (current) drug therapy
CPT/HCPCS: 36415; 71046; 80053; 84484; 85025; 85610; 93005; 99285-25

== ENCOUNTER 2021-06-18 00:46 | Emergency (ER) | payer MEDICARE, BC ==
[2021-06-18] MEDS ORDERED: Sodium Chloride 0.9% 10 ML Syringe FLUSH PRN (00:49)
[2021-06-18 01:53] LABS: CORONAVIRUS COVID-19 NAA NEGATIVE (NEGATIVE)
[2021-06-18] MEDS ORDERED: Metoprolol Tartrate 50 MG Tab PO SCH (06:15)
[2021-06-18] MEDS ORDERED: Pantoprazole 40 MG Tab.CR PO SCH ×2 (08:00→09:00)
[2021-06-18] MEDS ORDERED: Ezetimibe 10 MG Tab PO SCH (09:00)
[2021-06-18] MEDS ORDERED: Aspirin 81 MG Tab.Chew PO SCH (09:00)
[2021-06-18] MEDS ORDERED: Cyanocobalamin (Vitamin B12) 1,000 MCG Tab PO SCH (09:00)
[2021-06-18] MEDS ORDERED: Losartan 50 MG Tab PO SCH (09:00)
[2021-06-18] MEDS ORDERED: Isosorbide Mononitrate 30 MG Tab.ER PO SCH (09:00)
[2021-06-18] MEDS ORDERED: Magnesium Oxide 400 MG Tab PO SCH (09:00)
[2021-06-18] MEDS ORDERED: amLODIPine 5 MG Tab PO SCH (09:00)
[2021-06-18] MEDS ORDERED: Docusate Sodium 100 MG Cap PO ONE (09:19)
[2021-06-18 16:09] VITALS: BP 114/50; PULSE 54
[2021-06-18] MEDS ORDERED: atorvaSTATin 20 MG Tab PO SCH (21:00)
== END 2021-06-18 16:30 ==
LOC: JP.ED 00:46
DX: I25.700 Atherosclerosis of coronary artery bypass graft(s), unspecified, with unstable angina pectoris (principal); I21.4 Non-ST elevation (NSTEMI) myocardial infarction; I48.91 Unspecified atrial fibrillation; E78.00 Pure hypercholesterolemia, unspecified; I10 Essential (primary) hypertension; I25.2 Old myocardial infarction; Z95.5 Presence of coronary angioplasty implant and graft; Z88.8 Allergy status to other drugs, medicaments and biological substances; Z79.82 Long term (current) use of aspirin; Z79.899 Other long term (current) drug therapy; Z79.01 Long term (current) use of anticoagulants; Z20.822 Contact with and (suspected) exposure to COVID-19
CPT/HCPCS: 0241U; 36415; 71045; 80053; 84484; 85025; 85610; 85730; 86140; 93005; 93010; 99285; A9270

== ENCOUNTER 2022-04-10 09:13 | Day surgery (SDC) | payer MEDICARE, BC ==
[~2022-04-10 09:13] MED LIST: Lactated Ringers 1,000 ML IV SCH; Propofol 200 MG/20 ML SDV ONE; fentaNYL 50 MCG/ML SDV ONE
[2022-04-10] MEDS ORDERED: Lactated Ringers 1,000 ML IV SCH (10:00)
[2022-04-10] MEDS ORDERED: Propofol 200 MG/20 ML SDV ONE (11:02)
[2022-04-10 12:13] VITALS: BP 119/62; PULSE 70
== END 2022-04-10 12:39 | disposition home or self-care (01) ==
LOC: JP.SDS 09:13
PROVIDERS: ATTEND Student in an Organized Health Care Education/Training Program
DX: D12.0 Benign neoplasm of cecum (principal); D12.2 Benign neoplasm of ascending colon; D12.3 Benign neoplasm of transverse colon; D12.4 Benign neoplasm of descending colon; K29.60 Other gastritis without bleeding; K44.9 Diaphragmatic hernia without obstruction or gangrene; K21.9 Gastro-esophageal reflux disease without esophagitis; I10 Essential (primary) hypertension; I25.2 Old myocardial infarction; I48.91 Unspecified atrial fibrillation; E11.9 Type 2 diabetes mellitus without complications
CPT/HCPCS: 36415; 43239; 45385; 85610; 87081; 88305; J2704; J3010; J7120

== ENCOUNTER 2022-05-16 06:22 | Observation (INO) | payer MEDICARE, BC ==
[2022-05-16] MEDS ORDERED: Acetaminophen 500 MG Tab PO ONE (07:00)
[2022-05-16] MEDS: Indocyanine Green 25 MG SDV INJECT SCH ×2 (07:10→07:46)
[2022-05-16] MEDS: Lactated Ringers 1,000 ML IV SCH ×3 (07:11→23:10)
[2022-05-16] MEDS ORDERED: fentaNYL 250 MCG/5 ML SDV ONE (07:29)
[2022-05-16] MEDS ORDERED: Rocuronium 50 MG/5 ML Vial ONE (07:30)
[2022-05-16] MEDS ORDERED: Succinylcholine 200 MG/10 ML MDV ONE (07:30)
[2022-05-16] MEDS ORDERED: Neostigmine Methylsulfate 1 MG/ML 5 ML Syringe ONE (07:30)
[2022-05-16] MEDS ORDERED: Dexamethasone 4 MG/ML SDV ONE (07:30)
[2022-05-16] MEDS ORDERED: Ondansetron 4 MG/2 ML SDV ONE (07:30)
[2022-05-16] MEDS ORDERED: Glycopyrrolate 0.2 MG/ML 5 ML MDV ONE (07:30)
[2022-05-16] MEDS ORDERED: Propofol 200 MG/20 ML SDV ONE (07:30)
[2022-05-16] MEDS ORDERED: Indocyanine Green 25 MG SDV INJECT SCH (08:30)
[2022-05-16] MEDS ORDERED: metroNIDAZOLE/Normal Saline 500 MG in Premix Bag 1 BAG IV ONE (09:00)
[2022-05-16] MEDS ORDERED: cefTRIAXone 2 GM in Sodium Chloride 0.9% 50 ML IV ONE (09:00)
[2022-05-16] MEDS ORDERED: Bupivacaine 0.5%/EPINEPHrine 1:200,000 50 ML MDV ONE (09:12)
[2022-05-16] MEDS ORDERED: Ondansetron 4 MG/2 ML SDV IVPUSH PRN (10:39)
[2022-05-16] MEDS ORDERED: Docusate Sodium 100 MG Cap PO PRN (10:39)
[2022-05-16] MEDS ORDERED: Nitroglycerin 0.4 MG Tab.SL SL PRN (10:45)
[2022-05-16] MEDS: Acetaminophen/HYDROcodone 325-5 MG Tab PO PRN ×3 (12:15→23:28)
[2022-05-16] MEDS ORDERED: HYDROmorphone 0.5 MG/0.5 ML Syringe IVPUSH PRN (13:26)
[2022-05-16] MEDS: Metoprolol Tartrate 50 MG Tab PO SCH (20:20)
[2022-05-16] MEDS ORDERED: atorvaSTATin 20 MG Tab PO SCH (21:00)
[2022-05-16] MEDS ORDERED: QUEtiapine 25 MG Tab PO SCH (21:00)
[2022-05-17] MEDS: Acetaminophen/HYDROcodone 325-5 MG Tab PO PRN (05:31)
[2022-05-17 06:51] LABS: ESTIMATED GFR 68 mL/min (>60)
[2022-05-17] MEDS ORDERED: Famotidine 20 MG Tab PO SCH (09:00)
[2022-05-17] MEDS: Metoprolol Tartrate 50 MG Tab PO SCH (09:05)
[2022-05-17] MEDS ORDERED: Enoxaparin 60 MG/0.6 ML Syringe SUBCUT ONE (10:00)
[2022-05-17 10:57] VITALS: BP 101/50; PULSE 66
== END 2022-05-17 13:50 | disposition home or self-care (01) ==
LOC: JP.SDS 06:22 → JP.MS 10:39 → EEVIPCON 10:39
PROVIDERS: ADMIT Student in an Organized Health Care Education/Training Program; ATTEND Student in an Organized Health Care Education/Training Program
DX: K81.1 Chronic cholecystitis (principal); K82.8 Other specified diseases of gallbladder; I10 Essential (primary) hypertension; E78.5 Hyperlipidemia, unspecified; E11.40 Type 2 diabetes mellitus with diabetic neuropathy, unspecified; K21.9 Gastro-esophageal reflux disease without esophagitis; Z88.8 Allergy status to other drugs, medicaments and biological substances; Z88.6 Allergy status to analgesic agent; Z88.1 Allergy status to other antibiotic agents; Z79.899 Other long term (current) drug therapy; Z79.01 Long term (current) use of anticoagulants; Z79.82 Long term (current) use of aspirin; Z87.891 Personal history of nicotine dependence; Z90.49 Acquired absence of other specified parts of digestive tract; Z98.890 Other specified postprocedural states
CPT/HCPCS: 36415; 47562; 80053; 83735; 84100; 85027; 88304; A9270; J0330; J0696; J1100; J1170; J1650; J2405; J2704; J2710; J3010; J3490; J7120

== ENCOUNTER 2022-08-28 16:08 | Emergency (ER) | payer MEDICARE, BC ==
[2022-08-28] MEDS ORDERED: Sodium Chloride 0.9% 10 ML Syringe FLUSH PRN (16:32)
[2022-08-28] MEDS ORDERED: Aspirin 81 MG Tab.Chew PO ONE (17:00)
[2022-08-28] MEDS ORDERED: Furosemide 40 MG/4 ML VIAL IVPUSH ONE (17:38)
[2022-08-28 17:48] LABS: CORONAVIRUS COVID-19 NAA NEGATIVE (NEGATIVE)
[2022-08-28 18:09] VITALS: BP 123/75; PULSE 68
== END 2022-08-28 19:38 ==
LOC: JP.ED 16:08
DX: I25.5 Ischemic cardiomyopathy (principal); I73.9 Peripheral vascular disease, unspecified; K55.1 Chronic vascular disorders of intestine; I25.700 Atherosclerosis of coronary artery bypass graft(s), unspecified, with unstable angina pectoris; Z88.8 Allergy status to other drugs, medicaments and biological substances; I11.0 Hypertensive heart disease with heart failure; I50.9 Heart failure, unspecified; I25.10 Atherosclerotic heart disease of native coronary artery without angina pectoris; I48.91 Unspecified atrial fibrillation; K21.9 Gastro-esophageal reflux disease without esophagitis; Z95.0 Presence of cardiac pacemaker; Z79.01 Long term (current) use of anticoagulants; Z79.82 Long term (current) use of aspirin; I25.2 Old myocardial infarction; Z20.822 Contact with and (suspected) exposure to COVID-19
CPT/HCPCS: 0241U; 36415; 71045; 83880; 93005; 96374; 99285; A9270; J1940; J3490

== ENCOUNTER 2022-11-10 15:55 | Emergency (ER) | payer MEDICARE, BC ==
[2022-11-10] MEDS ORDERED: Sodium Chloride 0.9% 10 ML Syringe FLUSH PRN (17:07)
[2022-11-10] MEDS ORDERED: Sodium Chloride 0.9% 1,000 ML IV SCH (17:15)
[2022-11-10 17:23] LABS: BASOPHILS ABSOLUTE AUTO 0.04 K/uL (0.00-0.10); BASOPHILS PERCENT AUTO 0.8 % (0.1-1.3); EOSINOPHILS ABSOLUTE AUTO 0.14 K/uL (0.00-0.40); EOSINOPHILS PERCENT AUTO 2.7 % (0.0-5.4); HEMATOCRIT 40.1 % (38.4-49.7); HEMOGLOBIN 13.4 g/dL (12.9-16.9); IMMATURE GRAN PERCENT AUTO 0.2 % (0.0-0.7); LYMPHOCYTES ABSOLUTE AUTO 1.64 K/uL (0.8-3.3); MEAN CORPUSCULAR HEMOGLOBIN 33.6 pg (31.6-35.5); MEAN CORPUSCULAR HGB CONC 33.4 g/dL (31.6-35.5); MEAN CORPUSCULAR VOLUME 100.5 fL (81.4-99.0); MONOCYTES PERCENT AUTO 15.6 % (3.3-12.6); NEUTROPHILS PERCENT AUTO 48.7 % (40.0-78.1); PLATELET COUNT,PLT 141 K/uL (130-375); RED BLOOD CELL COUNT 3.99 M/uL (4.14-5.76); WHITE BLOOD CELL COUNT,WBC 5.1 K/uL (3.2-11.0)
[2022-11-10 17:24] LABS: IMMATURE GRAN ABSOLUTE AUTO 0.01 K/uL (0.00-0.23)
[2022-11-10 17:44] LABS: A/G RATIO 0.7 (1.2-2.2); ALANINE AMINOTRANSFERASE,ALT 39 U/L (12-78); ALBUMIN 2.9 g/dL (3.4-5.0); ALKALINE PHOSPHATASE 149 U/L (46-116); ASPARTATE AMNIOTRANSFERASE,AST 47 U/L (15-37); BILIRUBIN TOTAL 1.3 mg/dL (0.2-1.0); BLOOD UREA NITROGEN,BUN 34 mg/dL (7-18); CALCIUM 8.9 mg/dL (8.5-10.1); CARBON DIOXIDE,CO2 33 mmol/L (21-32); CHLORIDE,CL 102 mmol/L (100-108); CREATININE 1.7 mg/dL (0.8-1.3); EST CRCL DRUG DOSING (CG) 35.78 mL/min; ESTIMATED GFR 40 mL/min (>60); GLUCOSE RANDOM 103 mg/dL (74-106); PROTEIN TOTAL,TP 6.8 g/dL (6.4-8.2); SODIUM,NA 138 mmol/L (140-148)
[2022-11-10] MEDS ORDERED: Sodium Chloride 0.9% 50 ML IV ONE (18:32)
[2022-11-10] MEDS ORDERED: Iopamidol 612 MG/ML 100 ML Bottle IV ONE (18:32)
[2022-11-10] MEDS ORDERED: Sodium Chloride 0.9% 10 ML Syringe FLUSH ONE (18:32)
[2022-11-10 19:26] VITALS: BP 104/78; PULSE 74
[2022-11-14 18:11] LABS: H. PYLORI BREATH TEST Negative (Negative)
== END 2022-11-10 20:33 | disposition home or self-care (01) ==
LOC: JP.ED 15:55
DX: K52.9 Noninfective gastroenteritis and colitis, unspecified (principal); J45.909 Unspecified asthma, uncomplicated; E78.00 Pure hypercholesterolemia, unspecified; I10 Essential (primary) hypertension; K21.9 Gastro-esophageal reflux disease without esophagitis; I48.91 Unspecified atrial fibrillation; I25.2 Old myocardial infarction; Z88.8 Allergy status to other drugs, medicaments and biological substances; Z79.82 Long term (current) use of aspirin; Z95.0 Presence of cardiac pacemaker
CPT/HCPCS: 36415; 74177; 80053; 83013; 83690; 85025; 96360; 96361; 99284; J3490; J7030; Q9967

== ENCOUNTER 2022-11-11 05:35 | Emergency (ER) | payer MEDICARE, BC ==
[2022-11-11 06:08] VITALS: BP 145/90; PULSE 102
[2022-11-11 06:14] LABS: BASOPHILS ABSOLUTE AUTO 0.03 K/uL (0.00-0.10); BASOPHILS PERCENT AUTO 0.5 % (0.1-1.3); EOSINOPHILS ABSOLUTE AUTO 0.13 K/uL (0.00-0.40); EOSINOPHILS PERCENT AUTO 2.2 % (0.0-5.4); HEMATOCRIT 42.2 % (38.4-49.7); HEMOGLOBIN 14.2 g/dL (12.9-16.9); IMMATURE GRAN PERCENT AUTO 0.2 % (0.0-0.7); LYMPHOCYTES ABSOLUTE AUTO 2.03 K/uL (0.8-3.3); LYMPHOCYTES PERCENT AUTO 34.9 % (11.4-47.7); MEAN CORPUSCULAR HEMOGLOBIN 33.6 pg (31.6-35.5); MEAN CORPUSCULAR HGB CONC 33.6 g/dL (31.6-35.5); MEAN CORPUSCULAR VOLUME 99.8 fL (81.4-99.0); MONOCYTES ABSOLUTE AUTO 0.82 K/uL (0.20-0.90); MONOCYTES PERCENT AUTO 14.1 % (3.3-12.6); NEUTROPHILS ABSOLUTE AUTO 2.79 K/uL (1.0-7.6); NEUTROPHILS PERCENT AUTO 48.1 % (40.0-78.1); PLATELET COUNT,PLT 143 K/uL (130-375); RED BLOOD CELL COUNT 4.23 M/uL (4.14-5.76); WHITE BLOOD CELL COUNT,WBC 5.8 K/uL (3.2-11.0)
[2022-11-11 06:15] LABS: IMMATURE GRAN ABSOLUTE AUTO 0.01 K/uL (0.00-0.23)
[2022-11-11 06:36] LABS: A/G RATIO 0.8 (1.2-2.2); ALANINE AMINOTRANSFERASE,ALT 45 U/L (12-78); ALKALINE PHOSPHATASE 157 U/L (46-116); ANION GAP 13.1 mmol/L (5.0-14.0); ASPARTATE AMNIOTRANSFERASE,AST 59 U/L (15-37); BILIRUBIN TOTAL 1.6 mg/dL (0.2-1.0); BLOOD UREA NITROGEN,BUN 34 mg/dL (7-18); CARBON DIOXIDE,CO2 27 mmol/L (21-32); CHLORIDE,CL 99 mmol/L (100-108); CREATININE 1.7 mg/dL (0.8-1.3); EST CRCL DRUG DOSING (CG) 34.66 mL/min; ESTIMATED GFR 40 mL/min (>60); GLUCOSE RANDOM 103 mg/dL (74-106); POTASSIUM,K 4.1 mmol/L (3.6-5.2); PROTEIN TOTAL,TP 6.8 g/dL (6.4-8.2); SODIUM,NA 135 mmol/L (140-148)
[2022-11-11 06:40] LABS: TROPONIN I HIGH SENSITIVITY 18.1 pg/mL (<=60.3)
== END 2022-11-11 07:43 | disposition home or self-care (01) ==
LOC: JP.ED 05:35
DX: R60.0 Localized edema (principal); R11.0 Nausea; I48.91 Unspecified atrial fibrillation; I25.810 Atherosclerosis of coronary artery bypass graft(s) without angina pectoris; I10 Essential (primary) hypertension; E78.00 Pure hypercholesterolemia, unspecified; I25.2 Old myocardial infarction; J45.909 Unspecified asthma, uncomplicated; M19.90 Unspecified osteoarthritis, unspecified site; Z79.01 Long term (current) use of anticoagulants; Z79.899 Other long term (current) drug therapy; Z79.82 Long term (current) use of aspirin; Z88.8 Allergy status to other drugs, medicaments and biological substances
CPT/HCPCS: 36415; 80053; 83690; 84484; 85025; 99284

== ENCOUNTER 2022-11-13 08:08 | Day surgery (SDC) | payer MEDICARE, BC ==
[~2022-11-13 08:08] MED LIST changes: -Lactated Ringers 1,000 ML IV SCH
[2022-11-13] MEDS ORDERED: Dextrose 5%-Lactated Ringers 1,000 ML IV SCH (09:00)
[2022-11-13 11:53] VITALS: BP 114/74; PULSE 65
== END 2022-11-13 12:15 | disposition home or self-care (01) ==
LOC: JP.SDS 08:08
PROVIDERS: ATTEND Surgery
DX: K52.9 Noninfective gastroenteritis and colitis, unspecified (principal); K21.9 Gastro-esophageal reflux disease without esophagitis; I25.10 Atherosclerotic heart disease of native coronary artery without angina pectoris; I48.91 Unspecified atrial fibrillation; I25.2 Old myocardial infarction; F32.A Depression, unspecified; G62.9 Polyneuropathy, unspecified; Z79.899 Other long term (current) drug therapy; Z95.1 Presence of aortocoronary bypass graft; Z88.8 Allergy status to other drugs, medicaments and biological substances
CPT/HCPCS: 45380; 88305; J2704; J3010; J7121

== ENCOUNTER 2022-11-21 08:17 | Emergency (ER) | payer MEDICARE, BC ==
[2022-11-21 09:11] LABS: HEMATOCRIT 45.3 % (38.4-49.7); HEMOGLOBIN 14.8 g/dL (12.9-16.9); MEAN CORPUSCULAR HEMOGLOBIN 33.6 pg (31.6-35.5); MEAN CORPUSCULAR HGB CONC 32.7 g/dL (31.6-35.5); MEAN CORPUSCULAR VOLUME 102.7 fL (81.4-99.0); RED BLOOD CELL COUNT 4.41 M/uL (4.14-5.76); WHITE BLOOD CELL COUNT,WBC 6.2 K/uL (3.2-11.0)
[2022-11-21 09:23] LABS: INR 2.2; PROTHROMBIN TIME 21.3 sec (9.2-10.6)
[2022-11-21 09:34] LABS: A/G RATIO 0.8 (1.2-2.2); ALANINE AMINOTRANSFERASE,ALT 44 U/L (12-78); ALKALINE PHOSPHATASE 132 U/L (46-116); ASPARTATE AMNIOTRANSFERASE,AST 57 U/L (15-37); BLOOD UREA NITROGEN,BUN 26 mg/dL (7-18); CALCIUM 8.4 mg/dL (8.5-10.1); CARBON DIOXIDE,CO2 30 mmol/L (21-32); CHLORIDE,CL 100 mmol/L (100-108); CREATININE 1.4 mg/dL (0.8-1.3); EST CRCL DRUG DOSING (CG) 42.08 mL/min; ESTIMATED GFR 51 mL/min (>60); GLUCOSE RANDOM 112 mg/dL (74-106); POTASSIUM,K 4.3 mmol/L (3.6-5.2); PRO B-TYPE NATRIUR PEPT,BNPPRO 1682 pg/mL (5-450); SODIUM,NA 137 mmol/L (140-148); TROPONIN I HIGH SENSITIVITY 13.7 pg/mL (<=60.3)
[2022-11-21 09:39] LABS: ANION GAP 11.3 mmol/L (5.0-14.0)
[2022-11-21 09:45] VITALS: BP 138/85; PULSE 85
[2022-11-21] MEDS ORDERED: Furosemide 40 MG Tab PO ONE (10:15)
== END 2022-11-21 10:36 | disposition home or self-care (01) ==
LOC: JP.ED 08:17
DX: I11.0 Hypertensive heart disease with heart failure (principal); I50.9 Heart failure, unspecified; I25.10 Atherosclerotic heart disease of native coronary artery without angina pectoris; I48.91 Unspecified atrial fibrillation; E78.00 Pure hypercholesterolemia, unspecified; I25.2 Old myocardial infarction; E03.9 Hypothyroidism, unspecified; Z95.0 Presence of cardiac pacemaker; Z95.1 Presence of aortocoronary bypass graft; Z88.8 Allergy status to other drugs, medicaments and biological substances; Z79.82 Long term (current) use of aspirin
CPT/HCPCS: 36415; 71046; 80053; 83880; 84484; 85027; 85610; 99285; A9270

== ENCOUNTER 2022-11-27 21:51 | Emergency (ER) | payer MEDICARE, BC | END 2022-11-27 23:35 | disposition left against medical advice (07) | LOC: JP.ED 21:51 | DX: Z53.21 Procedure and treatment not carried out due to patient leaving prior to being seen by health care provider (principal) ==

== ENCOUNTER 2022-11-29 10:32 | Emergency (ER) | payer MEDICARE, BC ==
[2022-11-29] MEDS ORDERED: droPERidol 5 MG/2 ML SDV IM ONE (13:10)
[2022-11-29 15:26] VITALS: BP 141/82; PULSE 88
== END 2022-11-29 15:05 | disposition home or self-care (01) ==
LOC: JP.ED 10:32
DX: R11.0 Nausea (principal); I48.91 Unspecified atrial fibrillation; I25.10 Atherosclerotic heart disease of native coronary artery without angina pectoris; E78.00 Pure hypercholesterolemia, unspecified; I10 Essential (primary) hypertension; I25.2 Old myocardial infarction; J45.909 Unspecified asthma, uncomplicated; E03.9 Hypothyroidism, unspecified; K21.9 Gastro-esophageal reflux disease without esophagitis; Z95.0 Presence of cardiac pacemaker; Z88.8 Allergy status to other drugs, medicaments and biological substances; Z79.01 Long term (current) use of anticoagulants; Z79.899 Other long term (current) drug therapy; Z79.82 Long term (current) use of aspirin
CPT/HCPCS: 74018; 96372; 99284; J1790

== ENCOUNTER 2022-12-08 09:52 | Emergency (ER) | payer MEDICARE, BC ==
[2022-12-08 10:47] LABS: BASOPHILS ABSOLUTE AUTO 0.04 K/uL (0.00-0.10); BASOPHILS PERCENT AUTO 0.9 % (0.1-1.3); EOSINOPHILS ABSOLUTE AUTO 0.24 K/uL (0.00-0.40); EOSINOPHILS PERCENT AUTO 5.1 % (0.0-5.4); HEMATOCRIT 44.2 % (38.4-49.7); HEMOGLOBIN 14.7 g/dL (12.9-16.9); LYMPHOCYTES ABSOLUTE AUTO 1.28 K/uL (0.8-3.3); LYMPHOCYTES PERCENT AUTO 27.2 % (11.4-47.7); MEAN CORPUSCULAR HEMOGLOBIN 33.6 pg (31.6-35.5); MEAN CORPUSCULAR HGB CONC 33.3 g/dL (31.6-35.5); MEAN CORPUSCULAR VOLUME 100.9 fL (81.4-99.0); MONOCYTES ABSOLUTE AUTO 0.53 K/uL (0.20-0.90); MONOCYTES PERCENT AUTO 11.3 % (3.3-12.6); NEUTROPHILS ABSOLUTE AUTO 2.61 K/uL (1.0-7.6); NEUTROPHILS PERCENT AUTO 55.5 % (40.0-78.1); PLATELET COUNT,PLT 147 K/uL (130-375); RED BLOOD CELL COUNT 4.38 M/uL (4.14-5.76); WHITE BLOOD CELL COUNT,WBC 4.7 K/uL (3.2-11.0)
[2022-12-08 11:09] LABS: A/G RATIO 0.8 (1.2-2.2); ALANINE AMINOTRANSFERASE,ALT 30 U/L (12-78); ALBUMIN 3.1 g/dL (3.4-5.0); ALKALINE PHOSPHATASE 96 U/L (46-116); ASPARTATE AMNIOTRANSFERASE,AST 36 U/L (15-37); BILIRUBIN TOTAL 0.9 mg/dL (0.2-1.0); BLOOD UREA NITROGEN,BUN 25 mg/dL (7-18); CALCIUM 8.4 mg/dL (8.5-10.1); CARBON DIOXIDE,CO2 30 mmol/L (21-32); CHLORIDE,CL 101 mmol/L (100-108); CREATININE 1.6 mg/dL (0.8-1.3); EST CRCL DRUG DOSING (CG) 36.82 mL/min; ESTIMATED GFR 43 mL/min (>60); GLUCOSE RANDOM 155 mg/dL (74-106); MAGNESIUM 2.1 mg/dL (1.8-2.4); PROTEIN TOTAL,TP 6.8 g/dL (6.4-8.2); SODIUM,NA 137 mmol/L (140-148)
[2022-12-08 15:42] VITALS: BP 131/92; PULSE 98
== END 2022-12-08 16:04 | disposition home or self-care (01) ==
LOC: JP.ED 09:52
DX: R10.32 Left lower quadrant pain (principal); R11.10 Vomiting, unspecified; I48.91 Unspecified atrial fibrillation; I25.10 Atherosclerotic heart disease of native coronary artery without angina pectoris; E78.00 Pure hypercholesterolemia, unspecified; I10 Essential (primary) hypertension; I25.2 Old myocardial infarction; E03.9 Hypothyroidism, unspecified; K21.9 Gastro-esophageal reflux disease without esophagitis; J45.909 Unspecified asthma, uncomplicated; M19.90 Unspecified osteoarthritis, unspecified site; Z88.8 Allergy status to other drugs, medicaments and biological substances; Z79.01 Long term (current) use of anticoagulants; Z95.1 Presence of aortocoronary bypass graft; Z79.899 Other long term (current) drug therapy; Z79.82 Long term (current) use of aspirin
CPT/HCPCS: 36415; 80053; 83735; 85025; 99285

== ENCOUNTER 2022-12-10 07:17 | Emergency (ER) | payer MEDICARE, BC ==
[2022-12-10 09:30] VITALS: BP 114/80; PULSE 99
== END 2022-12-10 07:50 | disposition left against medical advice (07) ==
LOC: JP.ED 07:17
DX: Z53.21 Procedure and treatment not carried out due to patient leaving prior to being seen by health care provider (principal)

== ENCOUNTER 2023-01-19 20:26 | Emergency (ER) | payer MEDICARE, BC ==
[2023-01-19 22:09] VITALS: BP 116/69; PULSE 75
[2023-01-19 22:50] LABS: BASOPHILS ABSOLUTE AUTO 0.03 K/uL (0.00-0.10); BASOPHILS PERCENT AUTO 0.5 % (0.1-1.3); EOSINOPHILS ABSOLUTE AUTO 0.12 K/uL (0.00-0.40); HEMATOCRIT 34.7 % (38.4-49.7); HEMOGLOBIN 11.8 g/dL (12.9-16.9); IMMATURE GRAN PERCENT AUTO 0.3 % (0.0-0.7); LYMPHOCYTES ABSOLUTE AUTO 1.66 K/uL (0.8-3.3); LYMPHOCYTES PERCENT AUTO 27.4 % (11.4-47.7); MEAN CORPUSCULAR HEMOGLOBIN 33.3 pg (31.6-35.5); MONOCYTES ABSOLUTE AUTO 0.94 K/uL (0.20-0.90); MONOCYTES PERCENT AUTO 15.5 % (3.3-12.6); NEUTROPHILS ABSOLUTE AUTO 3.29 K/uL (1.0-7.6); NEUTROPHILS PERCENT AUTO 54.3 % (40.0-78.1); PLATELET COUNT,PLT 90 K/uL (130-375); RED BLOOD CELL COUNT 3.54 M/uL (4.14-5.76); WHITE BLOOD CELL COUNT,WBC 6.1 K/uL (3.2-11.0)
[2023-01-19 23:04] LABS: IMMATURE GRAN ABSOLUTE AUTO 0.02 K/uL (0.00-0.23); INR 1.3; PROTHROMBIN TIME 12.6 sec (9.2-10.6)
[2023-01-19 23:06] LABS: A/G RATIO 0.8 (1.2-2.2); ALANINE AMINOTRANSFERASE,ALT 16 U/L (12-78); ALKALINE PHOSPHATASE 100 U/L (46-116); ASPARTATE AMNIOTRANSFERASE,AST 32 U/L (15-37); BILIRUBIN TOTAL 1.8 mg/dL (0.2-1.0); BLOOD UREA NITROGEN,BUN 18 mg/dL (7-18); C-REACTIVE PROTEIN 5.43 mg/dL (0.0-0.3); CALCIUM 8.9 mg/dL (8.5-10.1); CARBON DIOXIDE,CO2 30 mmol/L (21-32); CHLORIDE,CL 99 mmol/L (100-108); CREATININE 1.2 mg/dL (0.8-1.3); EST CRCL DRUG DOSING (CG) 48.33 mL/min; ESTIMATED GFR 61 mL/min (>60); GLUCOSE RANDOM 101 mg/dL (74-106); POTASSIUM,K 3.6 mmol/L (3.6-5.2); PROTEIN TOTAL,TP 6.6 g/dL (6.4-8.2); SODIUM,NA 135 mmol/L (140-148)
[2023-01-19 23:13] LABS: ANION GAP 9.6 mmol/L (5.0-14.0)
[2023-01-19 23:48] LABS: APPEARANCE,URINE CLEAR (CLEAR); BILIRUBIN,URINE NEGATIVE (NEGATIVE); COLOR,URINE YELLOW (YELLOW); GLUCOSE,URINE NEGATIVE (NEGATIVE); KETONES,URINE NEGATIVE (NEGATIVE); LEUKOCYTE ESTERASE,URINE NEGATIVE (NEGATIVE); NITRITE,URINE NEGATIVE (NEGATIVE); OCCULT BLOOD,URINE MODERATE (NEGATIVE); PROTEIN,URINE NEGATIVE (NEGATIVE); UROBILINOGEN,URINE 0.2 EU/dL (0.2-1.0)
[2023-01-20] LABS: AMORPHOUS SEDIMENT,URINE NOT SEEN; BACTERIA,URINE RARE; EPITHELIAL CELLS,URINE FEW; MUCUS,URINE NOT SEEN; RBC,URINE 0-5 (0-5); WBC,URINE 0-5 (0-5)
== END 2023-01-20 02:13 | disposition home or self-care (01) ==
LOC: JP.ED 20:26
DX: R10.9 Unspecified abdominal pain (principal); R31.0 Gross hematuria; I25.10 Atherosclerotic heart disease of native coronary artery without angina pectoris; E78.00 Pure hypercholesterolemia, unspecified; I10 Essential (primary) hypertension; I25.2 Old myocardial infarction; I48.91 Unspecified atrial fibrillation; K21.9 Gastro-esophageal reflux disease without esophagitis; E03.9 Hypothyroidism, unspecified; Z95.1 Presence of aortocoronary bypass graft; Z88.8 Allergy status to other drugs, medicaments and biological substances; Z79.899 Other long term (current) drug therapy; Z79.01 Long term (current) use of anticoagulants
CPT/HCPCS: 36415; 74176; 80053; 81001; 85025; 85610; 86140; 99284

== ENCOUNTER 2023-05-10 10:28 | Emergency (ER) | payer MEDICARE, BC ==
[2023-05-10 11:29] LABS: BASOPHILS ABSOLUTE AUTO 0.04 K/uL (0.00-0.10); BASOPHILS PERCENT AUTO 0.7 % (0.1-1.3); EOSINOPHILS ABSOLUTE AUTO 0.12 K/uL (0.00-0.40); EOSINOPHILS PERCENT AUTO 2.1 % (0.0-5.4); HEMATOCRIT 39.3 % (38.4-49.7); HEMOGLOBIN 13.5 g/dL (12.9-16.9); IMMATURE GRAN PERCENT AUTO 0.2 % (0.0-0.7); LYMPHOCYTES ABSOLUTE AUTO 1.48 K/uL (0.8-3.3); LYMPHOCYTES PERCENT AUTO 25.9 % (11.4-47.7); MEAN CORPUSCULAR HEMOGLOBIN 34.9 pg (31.6-35.5); MEAN CORPUSCULAR HGB CONC 34.4 g/dL (31.6-35.5); MEAN CORPUSCULAR VOLUME 101.6 fL (81.4-99.0); NEUTROPHILS ABSOLUTE AUTO 3.27 K/uL (1.0-7.6); NEUTROPHILS PERCENT AUTO 57.1 % (40.0-78.1); PLATELET COUNT,PLT 112 K/uL (130-375); RED BLOOD CELL COUNT 3.87 M/uL (4.14-5.76); WHITE BLOOD CELL COUNT,WBC 5.7 K/uL (3.2-11.0)
[2023-05-10 11:33] LABS: IMMATURE GRAN ABSOLUTE AUTO 0.01 K/uL (0.00-0.23)
[2023-05-10 11:57] LABS: CREATININE 1.3 mg/dL (0.8-1.3); EST CRCL DRUG DOSING (CG) 44.32 mL/min; POTASSIUM,K 3.9 mmol/L (3.6-5.2)
[2023-05-10 11:59] LABS: ANION GAP 6.9 mmol/L (5.0-14.0)
[2023-05-10 12:26] VITALS: BP 135/69; PULSE 78
== END 2023-05-10 12:35 | disposition home or self-care (01) ==
LOC: JP.ED 10:28
DX: I48.91 Unspecified atrial fibrillation (principal); R11.0 Nausea; I25.10 Atherosclerotic heart disease of native coronary artery without angina pectoris; E78.00 Pure hypercholesterolemia, unspecified; I10 Essential (primary) hypertension; I25.2 Old myocardial infarction; K21.9 Gastro-esophageal reflux disease without esophagitis; Z79.01 Long term (current) use of anticoagulants; Z79.899 Other long term (current) drug therapy; Z88.8 Allergy status to other drugs, medicaments and biological substances; Z95.0 Presence of cardiac pacemaker; Z88.4 Allergy status to anesthetic agent
CPT/HCPCS: 36415; 71046; 71046-26; 80048; 83735; 83880; 84484; 85025; 93005; 99285

== ENCOUNTER 2023-06-14 06:27 | Emergency (ER) | payer MEDICARE, BC ==
[2023-06-14] MEDS ORDERED: Sodium Chloride 0.9% 10 ML Syringe FLUSH PRN (07:10)
[2023-06-14 07:48] LABS: INFLUENZA A NAA NEGATIVE (NEGATIVE); INFLUENZA B NAA NEGATIVE (NEGATIVE); RESPIRATORY SYNCYTIAL VIR NAA NEGATIVE (NEGATIVE)
[2023-06-14 07:51] LABS: CORONAVIRUS COVID-19 NAA POSITIVE (NEGATIVE)
[2023-06-14 07:52] LABS: BASOPHILS PERCENT AUTO 0.5 % (0.1-1.3); EOSINOPHILS ABSOLUTE AUTO 0.11 K/uL (0.00-0.40); EOSINOPHILS PERCENT AUTO 2.6 % (0.0-5.4); HEMATOCRIT 39.5 % (38.4-49.7); HEMOGLOBIN 13.5 g/dL (12.9-16.9); IMMATURE GRAN PERCENT AUTO 0.2 % (0.0-0.7); LYMPHOCYTES PERCENT AUTO 37.7 % (11.4-47.7); MEAN CORPUSCULAR HGB CONC 34.2 g/dL (31.6-35.5); MEAN CORPUSCULAR VOLUME 99.5 fL (81.4-99.0); MONOCYTES PERCENT AUTO 23.6 % (3.3-12.6); NEUTROPHILS PERCENT AUTO 35.4 % (40.0-78.1); PLATELET COUNT,PLT 109 K/uL (130-375); RED BLOOD CELL COUNT 3.97 M/uL (4.14-5.76); WHITE BLOOD CELL COUNT,WBC 4.2 K/uL (3.2-11.0)
[2023-06-14 07:57] LABS: BASOPHILS ABSOLUTE AUTO 0.02 K/uL (0.00-0.10); IMMATURE GRAN ABSOLUTE AUTO 0.01 K/uL (0.00-0.23)
[2023-06-14 08:05] LABS: ANION GAP 10.3 mmol/L (5.0-14.0); CALCIUM 8.2 mg/dL (8.5-10.1); CREATININE 1.7 mg/dL (0.8-1.3); EST CRCL DRUG DOSING (CG) 33.74 mL/min; POTASSIUM,K 4.3 mmol/L (3.6-5.2)
[2023-06-14 08:06] LABS: INR 1.9; PROTHROMBIN TIME 18.9 sec (9.2-10.6)
[2023-06-14 08:57] VITALS: BP 123/69; PULSE 66
== END 2023-06-14 09:15 | disposition home or self-care (01) ==
LOC: JP.ED 06:27
DX: I71.40 Abdominal aortic aneurysm, without rupture, unspecified (principal); I25.700 Atherosclerosis of coronary artery bypass graft(s), unspecified, with unstable angina pectoris; E86.1 Hypovolemia; E78.00 Pure hypercholesterolemia, unspecified; I10 Essential (primary) hypertension; I25.2 Old myocardial infarction; J45.909 Unspecified asthma, uncomplicated
CPT/HCPCS: 0241U; 36415; 80048; 82800; 83605; 85025; 85610; 93005; 99285

== ENCOUNTER 2023-10-16 02:49 | Emergency (ER) | payer MEDICARE, BC ==
[2023-10-16 03:10] VITALS: BP 128/78; PULSE 88
[2023-10-16 03:24] LABS: BASOPHILS ABSOLUTE AUTO 0.04 K/uL (0.00-0.10); BASOPHILS PERCENT AUTO 0.7 % (0.1-1.3); EOSINOPHILS ABSOLUTE AUTO 0.15 K/uL (0.00-0.40); EOSINOPHILS PERCENT AUTO 2.6 % (0.0-5.4); HEMOGLOBIN 14.6 g/dL (12.9-16.9); IMMATURE GRAN PERCENT AUTO 0.2 % (0.0-0.7); LYMPHOCYTES ABSOLUTE AUTO 2.07 K/uL (0.8-3.3); LYMPHOCYTES PERCENT AUTO 35.2 % (11.4-47.7); MEAN CORPUSCULAR HEMOGLOBIN 33.6 pg (31.6-35.5); MEAN CORPUSCULAR VOLUME 99.1 fL (81.4-99.0); MONOCYTES ABSOLUTE AUTO 0.86 K/uL (0.20-0.90); MONOCYTES PERCENT AUTO 14.6 % (3.3-12.6); NEUTROPHILS ABSOLUTE AUTO 2.75 K/uL (1.0-7.6); NEUTROPHILS PERCENT AUTO 46.7 % (40.0-78.1); PLATELET COUNT,PLT 118 K/uL (130-375); RED BLOOD CELL COUNT 4.34 M/uL (4.14-5.76); WHITE BLOOD CELL COUNT,WBC 5.9 K/uL (3.2-11.0)
[2023-10-16 03:25] LABS: IMMATURE GRAN ABSOLUTE AUTO 0.01 K/uL (0.00-0.23)
[2023-10-16 03:46] LABS: A/G RATIO 0.9 (1.2-2.2); ALANINE AMINOTRANSFERASE,ALT 24 U/L (12-78); ALBUMIN 3.4 g/dL (3.4-5.0); ALKALINE PHOSPHATASE 78 U/L (46-116); ANION GAP 10.6 mmol/L (5.0-14.0); ASPARTATE AMNIOTRANSFERASE,AST 31 U/L (15-37); BILIRUBIN TOTAL 0.8 mg/dL (0.2-1.0); BLOOD UREA NITROGEN,BUN 31 mg/dL (7-18); CALCIUM 8.8 mg/dL (8.5-10.1); CARBON DIOXIDE,CO2 28 mmol/L (21-32); CHLORIDE,CL 100 mmol/L (100-108); CREATININE 1.5 mg/dL (0.8-1.3); EST CRCL DRUG DOSING (CG) 39.65 mL/min; ESTIMATED GFR 46 mL/min (>60); GLUCOSE RANDOM 122 mg/dL (74-106); POTASSIUM,K 3.6 mmol/L (3.6-5.2); PROTEIN TOTAL,TP 7.3 g/dL (6.4-8.2); SODIUM,NA 135 mmol/L (140-148)
== END 2023-10-16 04:09 | disposition home or self-care (01) ==
LOC: JP.ED 02:49
DX: R07.89 Other chest pain (principal); I10 Essential (primary) hypertension; I25.2 Old myocardial infarction; I25.10 Atherosclerotic heart disease of native coronary artery without angina pectoris; J45.909 Unspecified asthma, uncomplicated; K21.9 Gastro-esophageal reflux disease without esophagitis; E03.9 Hypothyroidism, unspecified; I48.91 Unspecified atrial fibrillation; Z90.49 Acquired absence of other specified parts of digestive tract; Z88.8 Allergy status to other drugs, medicaments and biological substances; Z88.1 Allergy status to other antibiotic agents; Z79.899 Other long term (current) drug therapy; Z79.890 Hormone replacement therapy; Z87.891 Personal history of nicotine dependence
CPT/HCPCS: 36415; 80053; 83690; 85025; 99284